=== PATIENT | female | born 1950 | race Caucasian/White ===

== ENCOUNTER 2017-06-02 20:34 | Inpatient (IN) | payer OTHER ==
--- NOTE | 2017-06-02 21:03 | PDOC ---
Attending Attestation - HPI HPI: 06/02/17 21:16 The patient is a 66 year old female, with a significant past medical history of DVTs, chronic lower extremity swelling, hypertension, hyperlipidemia, COPD, asthma, GERD, macular degeneration, and arthritis, who presents to the emergency department sent by PCP, Dr. Vance, for possible admission for bilateral lower extremity edema and cellulitis for the past week. As per patients PCP, patient was placed on Amoxicillin last week for her symptoms with minimal relief. Today, patient reports her symptoms were worsening and Dr. Vance ordered a duplex doppler US of the lower extremities, which was negative for DVT. Patient notes increased swelling, erythema, and pain in her legs. She denies any associated chest pain, shortness of breath, diaphoresis, or palpitations. She denies any fever, chills, headache, or dizziness. She denies any nausea or vomiting. She denies any recent travel or sick contacts. Allergies: Moxifloxacin HCl, procaine HCl Past Surgical History: None reported Social History: Current everyday smoker. No ETOH or recreational drug use. PCP: Dr. Vance - Physicial Exam PE: 06/02/17 21:18 GENERAL: Well-appearing, well-nourished. No apparent distress. Obese HEENT: Normocephalic, atraumatic. PERRL, EOM intact. CARDIOVASCULAR: Normal S1, S2. Regular rate and rhythm. PULMONARY: Clear to auscultation bilaterally. No rales, ronchi ABDOMEN: Soft, non-distended, non-tender. EXTREMITIES: Chronic venous stasis. Bilateral lower extremities warm to touch, tender, and erythematous; 2+ pitting edema. No clubbing. Full range of motion in bilateral upper and lower extremities. SKIN: Warm, dry. Bilateral lower extremity cellulitis and edema. NEUROLOGICAL: No focal neurological deficits. Alert and orientedx3. Normal gait. - Medical Decision Making 06/02/17 21:16 Documentation prepared by Manda Mathias, acting as faculty i on call medical assistant for Cadence Garza MD. <Manda Mathias - Last Filed: 06/02/17 21:16> - Resident Resident Name: Stephan Moura - ED Attending Attestation I have performed the following: I have examined & evaluated the patient, The case was reviewed & discussed with the resident, I agree w/resident's findings & plan, Exceptions are as noted - Medical Decision Making pt has cellulitis and received antibiotics,admitted to med/surg 06/02/17 23:48 <Cadence Garza - Last Filed: 06/02/17 23:48>
--- NOTE | 2017-06-02 21:06 | PDOC ---
History of Present Illness - General Chief Complaint: Wound Stated Complaint: PCP SENT Time Seen by Provider: 06/02/17 20:49 - History of Present Illness Initial Comments: 06/02/17 21:08 The patient is a 66 year old female with a history of HTN, DM, COPD, DVT who presents for evaluation of lower extremity cellulitis from her PCP. She states that she was recently admitted at an OSH and treated for colitis. She was discharged 1 week ago and since that time, she has developed worsening lower extremity swelling and redness with increasing pain. She notes that she saw Dr. Vance her PCP last week who at the time she continue her PO antibiotics. She reports continued worsening symptoms despite PO antibiotics. She had a DVT US performed earlier today which was negative, however, given her continued symptoms, Dr. Vance sent her into the ED for admission for IV antibiotics. She denies fevers, chills, SOB, chest pain, abdominal pain, nausea, vomiting, or changes with urination or bowel movements. Past History - Past Medical History Allergies/Adverse Reactions: Allergies Allergy/AdvReac Type Severity Reaction Status Date / Time moxifloxacin HCl Allergy Verified 06/02/17 20:46 [From Avelox] procaine HCl [From Novocain] Allergy Verified 06/02/17 20:46 Home Medications: Ambulatory Orders Budesonide/Formeterol Fumarate [SYMBICORT 160/4.5mcg -] 1 inh PO DAILY 03/28/14 Diltiazem HCl [Dilacor Xr] 180 mg PO DAILY 03/28/14 Furosemide [Lasix -] 20 mg PO DAILY 03/28/14 Liraglutide [Victoza -] 0 mg SQ ASDIR 03/28/14 Lisinopril [Prinivil] 20 mg PO DAILY 03/28/14 Meloxicam [Mobic -] 15 mg PO DAILY 03/28/14 Metformin HCl [Metformin HCl ER] 500 mg PO DAILY 03/28/14 Metoprolol Succinate [Toprol XL -] 100 mg PO DAILY 03/28/14 Phentermine/Topiramate [Qsymia 15 mg-92 mg Capsule] 1 each PO DAILY 03/28/14 Potassium Chloride [Klor-Con 10] 10 meq PO DAILY 03/28/14 Ranitidine HCl [Zantac] 300 mg PO DAILY 03/28/14 Simvastatin [Zocor -] 40 mg PO HS 03/28/14 Tiotropium [place] [Spiriva] 1 inh PO DAILY 03/28/14 Triamterene/Hydrochlorothiazid [Triamterene-Hctz 37.5-25 mg Cp] 1 each PO DAILY 03/28/14 Asthma: Yes COPD: Yes GI Disorders: Yes (ACID REFLUX) HTN: Yes Hypercholesterolemia: Yes Other medical history: Colitis - Suicide/Smoking/Psychosocial Hx Smoking History: Current every day smoker Have you smoked in the past 12 months: Yes Number of Cigarettes Smoked Daily: 10 Information on smoking cessation initiated: No Hx Alcohol Use: No Drug/Substance Use Hx: No Substance Use Type: None Review of Systems - Review of Systems Comments:: 06/02/17 21:12 Constitutional: No fevers, chills, fatigue, malaise HEENT: No Rhinorrhea, nasal congestion, visual changes Cardiovascular: No chest pain, syncope, palpitations, lightheadedness Respiratory: No Cough, SOB, Hemoptysis, Gastrointestinal: No Abdominal pain, Nausea, Vomiting, Constipation, Diarrhea, Melena Genitourinary: No Dysuria, Frequency, Urgency, Hesitancy, Hematuria, Flank pain Musculoskeletal: No Myalgia, arthralgia Skin: Lower extremity erythema and warmth. No rashes, itching, bruising, pallor Neurologic: No Headache, Dizziness, Numbness, Weakness, or Tingling Psychiatric: No Hallucinations. No SI or HI *Physical Exam - Vital Signs Last Vital Signs Temp Pulse Resp BP Pulse Ox 98.4 F 98 H 20 118/64 96 06/02/17 20:40 06/02/17 20:40 06/02/17 20:40 06/02/17 20:40 06/02/17 20:40 - Physical Exam Comments: 06/02/17 21:12 General Appearance: Nourished. No Apparent Distress HEENT: EOMI, SIRIA. No Pharyngeal Erythema, Tonsillar Exudate, Tonsillar Erythema Neck: No Cervical Lymphadenopathy Respiratory/Chest: Lungs Clear, Normal Breath Sounds. No Crackles, Rales, Rhonchi, Wheezing Cardiovascular: Regular Rhythm, Regular Rate. No Murmur, Gallops, Rubs Gastrointestinal/Abdominal: Normal Bowel Sounds, Soft. No Guarding, Rebound, Tenderness Musculoskeletal: No CVA Tenderness Extremity: 3+ pitting edema bilaterally in the lower extremities with erythema and warmth, tender to palpation. Normal Capillary Refill Integumentary: Normal Color, Dry, Warm Neurologic: Fully Oriented, Alert, Normal Mood/Affect, Normal Response, ED Treatment Course - LABORATORY CBC & Chemistry Diagram: 06/02/17 22:04 06/02/17 22:04 Medical Decision Making - Medical Decision Making 06/02/17 21:13 The patient is a 66 year old female with a history of HTN, DM, COPD, DVT who presents for evaluation of lower extremity cellulitis from her PCP. Given the patient's physical exam, it is likely her symptoms are due to a cellulitis unresponsive to PO antibiotics. We will obtain a cbc, cmp to evaluate further. The patient will likely require admission for IV antibiotics and continued management. We will continue to monitor and reassess. 06/02/17 23:28 cbc, cmp are unremarkable. We discussed the case with the hospitalist team who accepted the patient for admission. The patient has received IV clindamycin here in the ED. *DC/Admit/Observation/Transfer Diagnosis at time of Disposition: Cellulitis Qualifiers: Site of cellulitis: unspecified site Qualified Code(s): L03.90 - Cellulitis, unspecified - Discharge Dispostion Condition at time of disposition: Stable Admit: Yes - Referrals Referrals: Serge Vance MD [Primary Care Provider] - - Patient Instructions - Post Discharge Activity
[2017-06-02] MEDS ORDERED: CLINDAMYCIN 600MG PREMIX IVPB 600 MG/50 ML BAG IVPB ONE ×2 (21:17→22:56)
[2017-06-02 22:25] LABS: BASO % 1.1 % (0-2.0); EOS % 2.9 % (0-4.5); HEMATOCRIT 31.8 % (32.4-45.2); HEMOGLOBIN 10.2 GM/dL (10.7-15.3); LYMPH % 21.2 % (8-40); MCH 26.9 pg (25.7-33.7); MCHC 32.1 g/dl (32.0-36.0); MEAN CELL VOLUME 83.6 fl (80-96); MEAN PLT VOLUME 7.2 fl (7.5-11.1); MONO % 10.9 % (3.8-10.2); NEUT % 63.9 % (42.8-82.8); PLATELET COUNT 510 K/MM3 (134-434); RBC 3.81 M/mm3 (3.60-5.2); RDW 19.6 % (11.6-15.6); WHITE BLOOD COUNT 9.8 K/mm3 (4.0-10.0)
[2017-06-02 22:49] LABS: ALBUMIN 2.4 g/dl (3.4-5.0); ANION GAP 5 (8-16); BLOOD UREA NITROGEN 25 mg/dL (7-18); CALCIUM 7.9 mg/dL (8.5-10.1); CHLORIDE 107 mmol/L (98-107); CO2 31 mmol/L (21-32); CREATININE 1.2 mg/dL (0.55-1.02); GLUCOSE,RANDOM 145 mg/dL (74-106); SGPT/ALT 33 U/L (12-78); SODIUM 143 mmol/L (136-145)
[2017-06-02 22:51] LABS: ALK PHOS 74 U/L (45-117); BILIRUBIN,TOTAL 0.2 mg/dL (0.2-1.0); TOT PROT 5.4 g/dl (6.4-8.2)
[2017-06-02 22:52] LABS: POTASSIUM 4.3 mmol/L (3.5-5.1); SGOT/AST 18 U/L (15-37)
--- NOTE | 2017-06-02 23:26 | PN ---
Teaching Attending Note Name of Resident: Robert Correa ATTENDING PHYSICIAN STATEMENT I saw and evaluated the patient. I reviewed the resident's note and discussed the case with the resident. I agree with the resident's findings and plan as documented. SUBJECTIVE: 66 yo F with Pmhx. of DVTx, Chronic LE edema, HTN, HLD, DM, COPD, Asthma, macular degeneration, and arthritis who was sent in by her PCP for bilateral LE edema and erythema. Duplex LE was negative for DVT. Pt. was placed on Amoxicillin as outpt, after d/c from [facility] for colitis. Notes she feels hot. but denies any fevers or chills. States her erythema on her bilateral LE has been increasing over the course of 1 week. Denies any shortness of breath, chest pain, or pressure. States she has had mild bleeding due to her hemmoriods a week ago. Notes she hit her left ankle several days ago. Recent Colonoscopy last admission to [facility] ( this Month) OBJECTIVE: Physical: VS: Vital Signs Period Temp Pulse Resp BP Sys/[place] Pulse Ox Last 24 Hr 98.4 F 98 20 118/64 96 GEN: NAD, resting in bed, AAoX3 HEENT: NCAT, PERRL, throat without erythema or exudates CARD: RRR S1, S2 RESP: CTAB ABD: BSx4, NTD to palpation EXT: Bilateral warmth and edema (+1 pitting), Erythema bilateral extending to mid calf. Pulses intact. RECTAL: Deferred by pt. CBCD WBC 9.8 K/mm3 (4.0-10.0) 06/02/17 22:04 RBC 3.81 M/mm3 (3.60-5.2) 06/02/17 22:04 Hgb 10.2 GM/dL (10.7-15.3) L D 06/02/17 22:04 Hct 31.8 % (32.4-45.2) L D 06/02/17 22:04 MCV 83.6 fl (80-96) 06/02/17 22:04 MCHC 32.1 g/dl (32.0-36.0) 06/02/17 22:04 RDW 19.6 % (11.6-15.6) H D 06/02/17 22:04 Plt Count 510 K/MM3 (134-434) H D 06/02/17 22:04 MPV 7.2 fl (7.5-11.1) L D 06/02/17 22:04 CMP Sodium 143 mmol/L (136-145) 06/02/17 22:04 Potassium 4.3 mmol/L (3.5-5.1) 06/02/17 22:04 Chloride 107 mmol/L (98-107) 06/02/17 22:04 Carbon Dioxide 31 mmol/L (21-32) 06/02/17 22:04 Anion Gap 5 (8-16) L 06/02/17 22:04 BUN 25 mg/dL (7-18) H 06/02/17 22:04 Creatinine 1.2 mg/dL (0.55-1.02) H 06/02/17 22:04 Creat Clearance w eGFR 45.09 (>60) 06/02/17 22:04 Random Glucose 145 mg/dL (74-106) H 06/02/17 22:04 Calcium 7.9 mg/dL (8.5-10.1) L 06/02/17 22:04 Total Bilirubin 0.2 mg/dL (0.2-1.0) D 06/02/17 22:04 AST 18 U/L (15-37) 06/02/17 22:04 ALT 33 U/L (12-78) 06/02/17 22:04 Alkaline Phosphatase 74 U/L (45-117) 06/02/17 22:04 Total Protein 5.4 g/dl (6.4-8.2) L 06/02/17 22:04 Albumin 2.4 g/dl (3.4-5.0) L 06/02/17 22:04 DUPLEX LE- NEGATIVE ASSESSMENT AND PLAN: 66 yo F with Pmhx. of DVTx, Chronic LE edema, DM, HTN, HLD, COPD, Asthma, macular degeneration, and arthritis who was sent in by her PCP for bilateral LE edema and erythema, being admitted for cellulitis 1.) Cellulitis - Bilateral LE - Vanco/Zosyn - Cx - ID consult 2.) LE Edema - Duplex Negative outpt. - Obtain records 3.) CHIQUITA - U lytes - VERY Gentle IVF - Avoid Nephrotoxins, renally dose all meds 4.) Asthma/COPD - Nebs prn - C/W Home meds 5.) DM - FS - RAISS 6.) HTN - Hold Ac 7.) ? Rectal Bleed due to Hemmoriods - Normocytic Anemia - Currently not bleeding - Recent [place] done at [facility] - Fe studies - Has apt. w GI in one week - Stool Occult 8.) Dvt PPx - Heparin 5000 q8 - If Occult Negative Admit to Obs
[2017-06-03] MEDS ORDERED: ACETAMINOPHEN 325 MG TABLET (FP) PO PRN ×2 (00:50→10:26)
[2017-06-03] MEDS ORDERED: ALBUTEROL SO4 0.083% IH SOL 2.5 MG/3 ML VIAL.NEB. NEB PRN ×2 (00:50→19:02)
--- NOTE | 2017-06-03 00:50 | HP ---
CHIEF COMPLAINT: PCP: Dr. Vance HISTORY OF PRESENT ILLNESS: The patient is a 66 yo f w/ PMH asthma/COPD who was sent to the ED by her PCP for cellulitis. Patient was recently admitted to [facility] for colitis and was discharged on amoxicillin. Since her discharge, the patient has noticed worsening swelling, redness and pain in both lower extremities. She went to see her PCP, who advised her to take her home lasix and amoxicillin. When the swelling and redness continued to worsen after finishing her abx, her PCP advised her to come to the ED for evaluation. Patient denies SOB, chest pain, fevers. Patient does endorse chills. ER course was notable for: (1) clindamycin x1 (2) (3) Recent Travel: none PAST MEDICAL HISTORY: Asthma/COPD GERD HLD colitis DVT in the past PAST SURGICAL HISTORY: Rt ankle fracture repair Social History: Smokin/2 PPD for 30 yrs Alcohol: denies Drugs: denies Family History: non-contributory Allergies moxifloxacin HCl [From Avelox] Allergy (Verified 06/02/17 20:46) procaine HCl [From Novocain] Allergy (Verified 06/02/17 20:46) HOME MEDICATIONS: Home Medications Medication Instructions Recorded Budesonide/Formeterol Fumarate 1 inh PO DAILY 03/28/14 [SYMBICORT 160/4.5mcg -] Diltiazem HCl [Dilacor Xr] 180 mg PO DAILY 03/28/14 Furosemide [Lasix -] 20 mg PO DAILY 03/28/14 Liraglutide [Victoza -] 0 mg SQ ASDIR 03/28/14 Lisinopril [Prinivil] 20 mg PO DAILY 03/28/14 Meloxicam [Mobic -] 15 mg PO DAILY 03/28/14 Metformin HCl [Metformin HCl ER] 500 mg PO DAILY 03/28/14 Metoprolol Succinate [Toprol XL -] 100 mg PO DAILY 03/28/14 Phentermine/Topiramate [Qsymia 15 1 each PO DAILY 03/28/14 mg-92 mg Capsule] Potassium Chloride [Klor-Con 10] 10 meq PO DAILY 03/28/14 Ranitidine HCl [Zantac] 300 mg PO DAILY 03/28/14 Simvastatin [Zocor -] 40 mg PO HS 03/28/14 Tiotropium [place] [Spiriva] 1 inh PO DAILY 03/28/14 Triamterene/Hydrochlorothiazid 1 each PO DAILY 03/28/14 [Triamterene-Hctz 37.5-25 mg Cp] REVIEW OF SYSTEMS CONSTITUTIONAL: Absent: fever, diaphoresis, generalized weakness, malaise, loss of appetite, weight change HEENT: Absent: rhinorrhea, nasal congestion, throat pain, throat swelling, difficulty swallowing, mouth swelling, ear pain, eye pain, visual changes CARDIOVASCULAR: Absent: chest pain, syncope, palpitations, irregular heart rate, lightheadedness , peripheral edema RESPIRATORY: Absent: cough, shortness of breath, dyspnea with exertion, orthopnea, wheezing, stridor, hemoptysis GASTROINTESTINAL: Absent: abdominal pain, abdominal distension, nausea, vomiting, diarrhea, constipation, melena, hematochezia GENITOURINARY: Absent: dysuria, frequency, urgency, hesitancy, hematuria, flank pain, genital pain MUSCULOSKELETAL: Absent: myalgia, arthralgia, joint swelling, back pain, neck pain SKIN: Absent: rash, itching, pallor HEMATOLOGIC/IMMUNOLOGIC: Absent: easy bleeding, easy bruising, lymphadenopathy, frequent infections ENDOCRINE: Absent: unexplained weight gain, unexplained weight loss, heat intolerance, cold intolerance NEUROLOGIC: Absent: headache, focal weakness or paresthesias, dizziness, unsteady gait, seizure, mental status changes, bladder or bowel incontinence PSYCHIATRIC: Absent: anxiety, depression, suicidal or homicidal ideation, hallucinations. PHYSICAL EXAMINATION Vital Signs - 24 hr 06/02/17 20:40 Temperature 98.4 F Pulse Rate 98 H Respiratory 20 Rate Blood Pressure 118/64 O2 Sat by Pulse 96 Oximetry (%) GENERAL: Awake, alert, and fully oriented, in no acute distress. HEAD: Normal with no signs of trauma. EYES: Pupils equal, round and reactive to light, extraocular movements intact, sclera anicteric, conjunctiva clear. No lid lag. NECK: Normal range of motion, supple without lymphadenopathy, JVD, or masses. LUNGS: Breath sounds equal, clear to auscultation bilaterally. no crackles. No accessory muscle use. Mild expiratory wheezes b/l HEART: Regular rate and rhythm, normal S1 and S2 without murmur, rub or gallop. ABDOMEN: Soft, nontender, not distended, normoactive bowel sounds, no guarding, no rebound, no masses. No hepatomegaly or splenomegaly. Rectal exam reveals tender external hemorrhoids. No elvie blood seen. MUSCULOSKELETAL: Normal range of motion at all joints. No bony deformities or tenderness. No CVA tenderness. LOWER EXTREMITIES: 2+ pulses, warm, well-perfused. No peripheral edema. Erythema , swelling and warmth over both lower extremities. Erythematous area is tender to palpation. Laboratory Results - last 24 hr 06/02/17 06/02/17 22:04 22:04 WBC 9.8 RBC 3.81 Hgb 10.2 L D Hct 31.8 L D MCV 83.6 MCH 26.9 D MCHC 32.1 RDW 19.6 H D Plt Count 510 H D MPV 7.2 L D Neutrophils % 63.9 D Lymphocytes % 21.2 D Monocytes % 10.9 H Eosinophils % 2.9 D Basophils % 1.1 Sodium 143 Potassium 4.3 Chloride 107 Carbon Dioxide 31 Anion Gap 5 L BUN 25 H Creatinine 1.2 H Creat Clearance w eGFR 45.09 Random Glucose 145 H Calcium 7.9 L Total Bilirubin 0.2 D AST 18 ALT 33 Alkaline Phosphatase 74 Total Protein 5.4 L Albumin 2.4 L ASSESSMENT/PLAN: Patient is a 66 yo f w/ PMH DM and COPD who is being admitted for treatment of cellulitis. #LE cellulitis -s/p clindamycin in the ED -vancomycin 1.5gm x1 (wt dosed) -zosyn 3.375gm q8h -ID consult #anemia -patient's baseline Hb 13.5 in 2013 -stool for occult blood negative -iron studies -will monitor h/h in AM #CHIQUITA -cr. 1.2; baseline .8 in 2013 -NS @ 42 -urine lytes, fractional excretion of urea -will monitor #COPD -c/w home nebs -albuterol nebs PRN -CXR WNL #DM -BGM ACHS -ISS -A1c in AM #FEN -NS @ 42 -Lytes WNL -diabetic diet #Prophy -HSQ 5ku TID #dispo -admit to med surg for IV ABX Visit type - Emergency Visit Emergency Visit: Yes ED Registration Date: 06/02/17 Care time: The patient presented to the Emergency Department on the above date and was hospitalized for further evaluation of their emergent condition. - New Patient This patient is new to me today: Yes Date on this admission: 06/03/17 - Critical Care Critical Care patient: No
[2017-06-03] MEDS ORDERED: SODIUM CHLORIDE 1,000 ML IV SCH (01:00)
[2017-06-03] MEDS ORDERED: VANCOMYCIN 1,500 MG in DEXTROSE 5%-WATER - 500 ML IVPB ONE (01:08)
[2017-06-03] MEDS ORDERED: VANCOMYCIN 1,500 MG in SODIUM CHLORIDE 500 ML IVPB ONE (01:30)
[2017-06-03] MEDS ORDERED: PIPERACILLIN/TAZOB 3.375 GM 3.375 GM/50 ML BAG IVPB ONE (02:45)
[2017-06-03 04:59] VITALS: BMI 41.9
[2017-06-03] MEDS: HEPARIN NA (PORCINE) 5,000 UNITS/ML 1ML VIAL SQ SCH ×3 (06:06→21:15)
[2017-06-03] MEDS: INSULIN SLIDING SCALE (NOVOLOG) 1 VIAL SQ SCH ×4 (06:08→21:26)
[2017-06-03] MEDS ORDERED: INSULIN SLIDING SCALE (NOVOLOG) 1 VIAL SQ SCH (07:00)
[2017-06-03 07:43] LABS: BASO % 1.1 % (0-2.0); EOS % 3.8 % (0-4.5); HEMATOCRIT 33.3 % (32.4-45.2); HEMOGLOBIN 10.5 GM/dL (10.7-15.3); LYMPH % 27.1 % (8-40); MCH 26.3 pg (25.7-33.7); MCHC 31.6 g/dl (32.0-36.0); MEAN CELL VOLUME 83.5 fl (80-96); MEAN PLT VOLUME 7.1 fl (7.5-11.1); MONO % 8.7 % (3.8-10.2); NEUT % 59.3 % (42.8-82.8); PLATELET COUNT 489 K/MM3 (134-434); RBC 3.99 M/mm3 (3.60-5.2); RDW 19.7 % (11.6-15.6); WHITE BLOOD COUNT 9.2 K/mm3 (4.0-10.0)
[2017-06-03 08:05] LABS: ALBUMIN 2.5 g/dl (3.4-5.0); ALK PHOS 78 U/L (45-117); ANION GAP 8 (8-16); BILIRUBIN,TOTAL 0.4 mg/dL (0.2-1.0); BLOOD UREA NITROGEN 23 mg/dL (7-18); CALCIUM 8.4 mg/dL (8.5-10.1); CHLORIDE 105 mmol/L (98-107); CO2 31 mmol/L (21-32); CREATININE 1.1 mg/dL (0.55-1.02); GLUCOSE,RANDOM 103 mg/dL (74-106); MAGNESIUM 2.1 mg/dL (1.8-2.4); PHOSPHOROUS 3.8 mg/dL (2.5-4.9); POTASSIUM 4.2 mmol/L (3.5-5.1); SGOT/AST 13 U/L (15-37); SGPT/ALT 31 U/L (12-78); SODIUM 144 mmol/L (136-145); TOT PROT 5.6 g/dl (6.4-8.2)
[2017-06-03] MEDS ORDERED: PHENTERMINE PO SCH (10:00)
[2017-06-03] MEDS ORDERED: FUROSEMIDE 20 MG TABLET (FP) PO SCH (10:00)
[2017-06-03] MEDS ORDERED: TOPIRAMATE PO SCH (10:00)
[2017-06-03] MEDS ORDERED: PATIENT'S OWN MEDICATION (NON-FORMULARY) (Meloxicam 15 MG) PO SCH (10:00)
[2017-06-03] MEDS ORDERED: LISINOPRIL 20 MG TABLET (FP) PO SCH (10:00)
[2017-06-03] MEDS ORDERED: BUDESONIDE/FORMETEROL FUMARATE 160/4.5 mcg INHALER IH SCH (10:00)
[2017-06-03] MEDS ORDERED: [UNRECOGNIZED DRUG - OTHER] PO SCH (10:00)
[2017-06-03] MEDS ORDERED: TIOTROPIUM BROMIDE 18 MCG/INH (DEVICE W/ 5 CAPSULES) IH SCH (10:00)
[2017-06-03] MEDS ORDERED: RANITIDINE HCL 150 MG TABLET (FP) PO SCH (10:00)
--- NOTE | 2017-06-03 10:22 | PN ---
Progress Note, Physician Chief Complaint: Cellulitis BLLE History of Present Illness: NAD, sitting at the edge of the bed mild pain cellulitis marking improved, swelling decreased on IV abx to be seen by ID - Current Medication List Current Medications: Active Medications Acetaminophen (Tylenol -) 650 mg PO Q4H PRN PRN Reason: PAIN Albuterol Sulfate (Ventolin 0.083% Nebulizer Soln -) 1 amp NEB Q4H PRN PRN Reason: SHORT OF BREATH/WHEEZING Atorvastatin Calcium (Lipitor -) 20 mg PO HS ELAINE Budesonide/Formoterol Fumarate (Symbicort 160/4.5mcg -) 1 puff IH DAILY ELAINE Diltiazem HCl (Cardizem Cd -) 180 mg PO DAILY ELAINE Furosemide (Lasix -) 20 mg PO DAILY ELANIE Heparin Sodium (Porcine) (Heparin -) 5,000 unit SQ TID [facility] Last Admin: 06/03/17 06:06 Dose: 5,000 unit Sodium Chloride (Normal Saline -) 1,000 mls @ 42 mls/hr IV ASDIR [facility] Last Admin: 06/03/17 05:45 Dose: 42 mls/hr Piperacillin/Tazobactam/Dextrose (Zosyn 3.375gm Ivpb (Premix)) 50 mls @ 100 mls /hr IVPB Q8H-IV ELAINE PRN Reason: Protocol Insulin Aspart (Novolog Vial Sliding Scale -) 1 vial SQ ACHS ELAINE PRN Reason: Protocol Last Admin: 06/03/17 06:08 Dose: Not Given Metoprolol Succinate (Toprol Xl -) 50 mg PO DAILY [facility] Non-Formulary Medication (Meloxicam) 15 mg PO DAILY [facility] Non-Formulary Medication (Phentermine/Topiramate [Qsymia 15 Mg-92 Mg Capsule]) 1 each PO DAILY [facility] Ranitidine HCl (Zantac -) 300 mg PO DAILY [facility] Tiotropium [place] (Spiriva -) 1 puff IH DAILY [facility] Triamterene/HCTZ (Dyazide 25/37.5mg) 1 cap PO DAILY [facility] - Objective Vital Signs: Vital Signs Temperature 98.3 F 06/03/17 04:23 Pulse Rate 92 H 06/03/17 04:23 Respiratory Rate 20 06/03/17 04:23 Blood Pressure 124/69 06/03/17 04:23 O2 Sat by Pulse Oximetry (%) 96 06/02/17 20:40 Constitutional: Yes: Well Nourished, No Distress, Calm Cardiovascular: Yes: Regular Rate and Rhythm Respiratory: Yes: Regular Gastrointestinal: Yes: Normal Bowel Sounds, Soft Musculoskeletal: Yes: WNL Extremities: Yes: Erythema (BLLE) Edema: Yes (BLLE non pitting) Peripheral Pulses WNL: Yes Wound/Incision: Yes: Clean/Dry, Reddened, Unapproximated Neurological: Yes: Alert, Oriented Psychiatric: Yes: Alert, Oriented Labs: CBC, BMP 06/03/17 06:00 06/03/17 06:00 Problem List - Problems (1) Prediabetes Assessment/Plan: -A1c at 6.1 -insulin sliding scale -diabetic diet -RD consult Code(s): R73.03 - PREDIABETES (2) Cellulitis Assessment/Plan: -IV abx -ID consult -elevate BLLE above pelvis when in bed Code(s): L03.90 - CELLULITIS, UNSPECIFIED Qualifiers: Site of cellulitis: unspecified site Qualified Code(s): L03.90 - Cellulitis , unspecified Assessment/Plan see problem list
[2017-06-03] MEDS ORDERED: KETOROLAC TROMETHAMINE 10 MG TABLET PO PRN ×2 (10:25→19:02)
[2017-06-03] MEDS ORDERED: oxyCODONE HCL 5 MG TABLET PO PRN (10:26)
[2017-06-03] MEDS ORDERED: PT OWN MED DRAWER 7, Y5N ONE (10:32)
[2017-06-03] MEDS: TRIAMTERENE AND HCTZ - 37.5 MG/25 MG CAPSULE PO SCH ×2 (10:35→14:45)
[2017-06-03] MEDS ORDERED: LACTOBACILLUS ACIDOPHILUS 1 EACH TAB (FP) PO SCH (10:45)
--- NOTE | 2017-06-03 13:23 | PN ---
Progress Note (short form) - Note Progress Note: ID Conulst dictated Bilateral LE cellulitis pending c/s empiric cefazolin 2gm IVPB q8h elevation, analgesics
--- NOTE | 2017-06-03 14:23 | CONS ---
INFECTIOUS DISEASE CONSULTATION DATE OF CONSULTATION: DATE OF DICTATION: 06/03/2017 REASON FOR CONSULTATION: The patient is a 66-year-old diabetic female who is evaluated for bilateral lower extremity cellulitis. HISTORY OF PRESENT ILLNESS: Patient was recently hospitalized at [facility] for diverticulitis. She reports being hospitalized for 1 week before being discharged on May 25, 2017. Over the past several days, she has had worsening bilateral lower extremity swelling, increasing erythema and warmth. She was treated as an outpatient with amoxicillin without significant improvement. She was evaluated in the emergency room where she was admitted with bilateral lower extremity cellulitis. She was empirically treated with clindamycin. A Doppler exam was performed and was negative for DVT. The patient states that she did sustain some minor trauma to her right lower extremity after striking it against a metal cabinet. She cleaned the wound out herself and reports it did not get infected. She has a history of a right ankle fracture and has hardware. This was done years ago. She denies prior history of serious soft tissue infection requiring hospitalization. No history of MRSA. PAST MEDICAL HISTORY: Positive for diabetes. Positive for hypertension, hyperlipidemia, COPD, bronchial asthma, gastroesophageal reflux, DVT, macular degeneration. PAST SURGICAL HISTORY: Status post right ankle fracture. ALLERGIES: MOXIFLOXACIN and PROCAINE. MEDICATIONS: Triamterene, Zantac, Zocor, Spiriva, Symbicort, diltiazem, Lasix, Victoza, lisinopril, Mobic, metformin, Toprol. SOCIAL HISTORY: She lives at home. She has positive tobacco use history. Negative EtOH or illicit drug use. SYSTEMS REVIEW: Neurologic: No loss of consciousness, seizure activity, focal weakness. Cardiac: Negative chest pain or palpitations. Respiratory: Negative cough or sputum production. Gastrointestinal: Negative vomiting or diarrhea. Genitourinary: Negative for urinary tract infection. LABORATORY DATA: White count 9.2, hematocrit 33.3, platelet count 489. BUN 23, creatinine 1.1. Blood culture is preliminarily negative. PHYSICAL EXAMINATION: General: She is awake and alert. She is in no acute distress, not acutely toxic appearing. Vital Signs: Temperature 98.3; blood pressure 124/69; pulse 94, regular; respirations 20 per minute. HEENT: Sclerae are anicteric. Heart: Sounds S1, S2. Lungs: Clear. Abdomen: Obese, soft, nontender. Lower Extremities: Bilateral lower extremity edema 2+. There is confluent erythema and warmth present in both lower extremities from mid-tibia to the ankle area bilaterally. The skin is warm to touch. No crepitus or fluctuance. No lymphangitic streaking. Healed surgical scar is present, right ankle. IMPRESSION: 1. Bilateral lower extremity cellulitis. 2. Possible sepsis secondary to cellulitis. 3. Status post recent diverticulitis. RECOMMENDATIONS: Await culture results. Empiric antibiotic coverage with cefazolin 2 g IV piggyback every 8 hours. Elevation. Analgesics. Will follow. Thank you for the kind referral. KAYLAH CHAPARRO M.D. [id number]
[2017-06-03] MEDS: CEFAZOLIN 2 GM/D5W 2 GM/50 ML ML IVPB SCH ×2 (14:44→17:27)
--- NOTE | 2017-06-03 16:41 | EKG ---
Test Reason : Blood Pressure : / mmHG Vent. Rate : 090 BPM Atrial Rate : 090 BPM P-R Int : 128 ms QRS Dur : 072 ms QT Int : 370 ms P-R-T Axes : 061 033 046 degrees QTc Int : 452 ms NORMAL SINUS RHYTHM POSSIBLE LEFT ATRIAL ENLARGEMENT BORDERLINE ECG WHEN COMPARED WITH ECG OF 26-SEP-2006 08:51, NONSPECIFIC T WAVE ABNORMALITY NO LONGER EVIDENT IN LATERAL LEADS Confirmed by MD Iam, Javid ([id number]) on 06/03/2017 4:41:25 PM Referred By: Confirmed By:Javid Vitale MD
[2017-06-03] MEDS ORDERED: PIPERACILLIN/TAZOB 3.375 GM 50 ML IVPB SCH (18:00)
--- NOTE | 2017-06-03 18:29 | PN ---
Progress Note (short form) - Note Progress Note: Vascular Surgery Pt seen and examined. Bl lower ext cellulitis. warm to touch. Pt has palpable pulses. ID on case for IV antibiotics. Leg elevation. Will need compression once cellulitis resolves. Pt should follow up in wound care clinic where we can study her veins for reflux. Pt might need laser therapy to decrease swelling, and recurrent bouts of cellulitis. Montrell Alva DO
[2017-06-03] MEDS ORDERED: dilTIAZem HCL 50 MG/10 ML - 10 ML VIAL IVPUSH ONE ×4 (18:33→19:30)
[2017-06-03] MEDS ORDERED: dilTIAZem HCL 125 MG/25 ML - 25 ML VIAL ONE (18:45)
[2017-06-03] MEDS ORDERED: SODIUM CHLORIDE 500 ML IV STA (18:46)
--- NOTE | 2017-06-03 18:51 | RAPID ---
<Triny Josue - Last Filed: 06/03/17 19:04> Physical Examination Vital Signs: Vital Signs Temperature 98.3 F 06/03/17 16:20 Pulse Rate 73 06/03/17 16:20 Respiratory Rate 20 06/03/17 16:20 Blood Pressure 101/52 06/03/17 16:20 O2 Sat by Pulse Oximetry (%) 96 06/02/17 20:40 bp 121/62, 194 bpm, 98% on 15 L nonrebreather Findings/Remarks: patient in acute distress, complaining of new onset mid sternal CP, crushing, constant and palpitations. She has never had this pain before. She denies cardiac history but is on cardizem and metoprolol at home. reports negative stress test a yr ago. Has HTN and COPD. has history of blood streaked stools. Hospitalized for b/l LE cellulitis Constitutional: Yes: Moderate Distress, Obese Eyes: Yes: Conjunctiva Clear, EOM Intact HENT: Yes: Atraumatic, Normocephalic Neck: Yes: Supple Cardiovascular: Yes: Tachycardia, Pulse Irregular, S1, S2. No: JVD Respiratory: Yes: CTA Bilaterally Gastrointestinal: Yes: Normal Bowel Sounds, Abdomen, Obese ...Rectal Exam: Yes: Deferred Extremities: Yes: Other (b/l le erythema edema) Edema: LLE: 2+, RLE: 2+ Peripheral Pulses: Left Radial: 2+, Right Radial: 2+ Neurological: Yes: Alert, Oriented Psychiatric: Yes: Alert, Oriented Rapid Response - Rapid Response Assessment: Stat EKG done shows afib with tvr rate [address] depression in inferolateral leads. given metoprolol 5 no response in hr, then given cardizem 10, HR goes down to 152, repeat ekg shows a fib rvr rate [address] depressions. patient still feels palpitations and cp. patient transferred to telemetry. Dr Camargo channeler insole contacted, recommends strarting her on crdizem gtt rate 7.5 with 10 mg bolus. this is because she is on high dose cardizem 180 at home. Stat cxr, le duplex, cbc, cmp, mag, phos, lactic acid, tsh, cardiac panel ordered. tte ordered <Rosalino Silver - Last Filed: 06/07/17 14:36> Physical Examination Vital Signs: Patient was seen in rapid response. Noted with new onset atrial fibirllation 200s. Metoprolol 5 mg IV x 1, then cardizem 10 mg IV x 1, HR eventually improved to 110-120s. EKG with rate related ST depressions in anterolateral leads. Started on cardizem drip. Cardiology consulted with Dr. Jackson, case discussed. Plan for transfer to telemetry. Also patient with LE edema, and prior h/o DVT. Noted hypoxic 80s and place on NRB. H/o COPD. CT PE ordered. CBC, CMP, troponin I ordered. repeat EKG with improved rate shows improvement in ST depressions. case signed out to overnight covering MD Dr. Sewell and Mahnaz Ashley NP. To follow up labs and CT PE. Total critical care time spent at bedside 40 min. Labs: CBC, BMP 06/04/17 08:15 06/04/17 08:15
[2017-06-03 18:52] LABS: HEMATOCRIT 32.5 % (32.4-45.2); HEMOGLOBIN 10.5 GM/dL (10.7-15.3); MCH 26.8 pg (25.7-33.7); MCHC 32.4 g/dl (32.0-36.0); MEAN CELL VOLUME 82.8 fl (80-96); PLATELET COUNT 487 K/MM3 (134-434); RBC 3.93 M/mm3 (3.60-5.2); RDW 18.8 % (11.6-15.6); WHITE BLOOD COUNT 8.5 K/mm3 (4.0-10.0)
[2017-06-03] MEDS ORDERED: METOPROLOL TARTRATE 5 MG/5 ML VIAL IVPUSH ONE (19:00)
[2017-06-03] MEDS ORDERED: DILTIAZEM INJECTION 125 MG in DEXTROSE 5%-WATER - 100 ML IVPB SCH (19:00)
[2017-06-03] MEDS ORDERED: ADENOSINE 6 MG/2 ML VIAL IVPUSH ONE ×4 (19:00→19:02)
[2017-06-03 19:01] LABS: ARTERIAL BLOOD GAS BASE EXCESS 6.1 meq/l (-2-2); ARTERIAL BLOOD GAS PCO2 42.7 mmHg (35-45); ARTERIAL BLOOD GAS pH 7.46 (7.35-7.45)
[2017-06-03 19:03] LABS: ALLENS TEST POSITIVE
[2017-06-03 19:14] LABS: ALBUMIN 2.5 g/dl (3.4-5.0); ANION GAP 7 (8-16); BLOOD UREA NITROGEN 17 mg/dL (7-18); CALCIUM 7.9 mg/dL (8.5-10.1); CHLORIDE 106 mmol/L (98-107); CO2 29 mmol/L (21-32); GLUCOSE,RANDOM 115 mg/dL (74-106); MAGNESIUM 2.1 mg/dL (1.8-2.4); PHOSPHOROUS 3.8 mg/dL (2.5-4.9); POTASSIUM 3.7 mmol/L (3.5-5.1); SGOT/AST 11 U/L (15-37); SGPT/ALT 29 U/L (12-78); SODIUM 142 mmol/L (136-145)
[2017-06-03 19:18] LABS: ALK PHOS 77 U/L (45-117); BILIRUBIN,TOTAL 0.2 mg/dL (0.2-1.0); TOT PROT 5.4 g/dl (6.4-8.2)
[2017-06-03] MEDS: DILTIAZEM INJECTION 125 MG in DEXTROSE 5%-WATER - 100 ML IVPB SCH (19:30)
[2017-06-03] MEDS: SODIUM CHLORIDE 1,000 ML IV SCH (19:30)
[2017-06-03] MEDS: ATORVASTATIN CA 20 MG TABLET (FP) PO SCH (21:15)
[2017-06-03] MEDS ORDERED: ATORVASTATIN CA 20 MG TABLET (FP) PO SCH (22:00)
[2017-06-04] MEDS ORDERED: DIGOXIN 0.5 MG/2 ML AMPUL IVPUSH ONE ×2 (01:20→07:30)
[2017-06-04] MEDS: CEFAZOLIN 2 GM/D5W 2 GM/50 ML ML IVPB SCH ×3 (01:39→18:34)
[2017-06-04] MEDS ORDERED: METOPROLOL TARTRATE 5 MG/5 ML VIAL ONE (03:54)
--- NOTE | 2017-06-04 03:55 | HOSP ---
Subjective - Review of Symptoms Events since last encounter: Called to see pt for elevated HR. Pt is on cardizem 15mg/hr. s/p rapid response earlier today. Subjective: Pt reports feeling ok. No SOB, No chest pain, reports mild palpitations. Pulmonary: No: Dyspnea, Cough Cardiovascular: Yes: Palpitations. No: Chest Pain Physical Examination Vital Signs: Vital Signs Temperature 98.3 F 06/03/17 22:00 Pulse Rate 148 H 06/04/17 01:29 Respiratory Rate 23 06/03/17 22:00 Blood Pressure 113/57 06/03/17 22:00 O2 Sat by Pulse Oximetry (%) 95 06/03/17 21:00 Constitutional: Yes: No Distress Cardiovascular: Yes: Pulse Irregular, S1, S2 Respiratory: Yes: CTA Bilaterally Gastrointestinal: Yes: Normal Bowel Sounds, Soft. No: Tenderness Edema: No Labs: CBC, BMP 06/03/17 18:47 06/03/17 18:47 Hospitalist Encounter Assessment: new onset atrial fibrillation with RVR - rate improved from before pt placed on cardizem drip but still remains variable; typically 120s-140, extremes up to 150s, down to 90s. Discussed with cardiology earlier and initiated digoxin. Pt received dig 0.25mg @ 130, second dose to be given 0.25mg @[address] Welch. Will continue same treatment course. will not add any further medications at this time. DW pt and primary nurse.
--- NOTE | 2017-06-04 03:55 | HOSP ---
Subjective - Review of Symptoms Subjective: Saw pt. at bedside for A fib W RVR States she feels ok Denies any Shortness of Breath Denies any chest pain or pressure CARD: IRR S1, S2 RESP: CTAB A/P.) A-FiB W RVR - Cardiology called and spoken too, Digoxin 0.25 administered - Lopressor 5 IV X1 - Already on Cardizem gtt - Will be due for Dig. 0.25 6 hrs after 1st dose - Cannot be on A/C due to rectal bleeding as per patient - Cardiology on consult - Echo - Trops/Ekg Physical Examination Vital Signs: Vital Signs Temperature 98.3 F 06/03/17 22:00 Pulse Rate 148 H 06/04/17 01:29 Respiratory Rate 23 06/03/17 22:00 Blood Pressure 113/57 06/03/17 22:00 O2 Sat by Pulse Oximetry (%) 95 06/03/17 21:00 Labs: CBC, BMP 06/03/17 18:47 06/03/17 18:47
[2017-06-04] MEDS: DILTIAZEM INJECTION 125 MG in DEXTROSE 5%-WATER - 100 ML IVPB SCH (03:57)
[2017-06-04] MEDS ORDERED: METOPROLOL TARTRATE 5 MG/5 ML VIAL IVPUSH ONE (04:18)
[2017-06-04 06:06] LABS: SERUM IRON SATURATION 10 % (15-55); TOTAL IRON BINDING CAPACITY 256 ug/dL (250-450); UIBC 231 ug/dL (118-369)
[2017-06-04] MEDS: INSULIN SLIDING SCALE (NOVOLOG) 1 VIAL SQ SCH ×4 (06:09→21:22)
[2017-06-04] MEDS: HEPARIN NA (PORCINE) 5,000 UNITS/ML 1ML VIAL SQ SCH (06:14)
[2017-06-04 08:07] LABS: TRANSFERRIN 213 mg/dL (200-370)
[2017-06-04 08:28] LABS: BASO % 1.3 % (0-2.0); EOS % 3.5 % (0-4.5); HEMATOCRIT 32.7 % (32.4-45.2); HEMOGLOBIN 10.3 GM/dL (10.7-15.3); LYMPH % 19.1 % (8-40); MCH 26.3 pg (25.7-33.7); MCHC 31.4 g/dl (32.0-36.0); MEAN CELL VOLUME 83.7 fl (80-96); MEAN PLT VOLUME 6.6 fl (7.5-11.1); MONO % 9.1 % (3.8-10.2); PLATELET COUNT 437 K/MM3 (134-434); RBC 3.91 M/mm3 (3.60-5.2); RDW 18.9 % (11.6-15.6)
[2017-06-04] MEDS ORDERED: PT OWN MED DRAWER 7, Y5N ONE ×2 (08:54→10:01)
[2017-06-04 09:01] LABS: ANION GAP 5 (8-16); BLOOD UREA NITROGEN 17 mg/dL (7-18); CALCIUM 8.1 mg/dL (8.5-10.1); CHLORIDE 108 mmol/L (98-107); CO2 29 mmol/L (21-32); GLUCOSE,RANDOM 108 mg/dL (74-106); MAGNESIUM 2.1 mg/dL (1.8-2.4); PHOSPHOROUS 3.7 mg/dL (2.5-4.9); POTASSIUM 4.3 mmol/L (3.5-5.1); SODIUM 142 mmol/L (136-145)
[2017-06-04] MEDS: LACTOBACILLUS ACIDOPHILUS 1 EACH TAB (FP) PO SCH (10:13)
[2017-06-04] MEDS: RANITIDINE HCL 150 MG TABLET (FP) PO SCH (10:14)
[2017-06-04] MEDS: FUROSEMIDE 20 MG TABLET (FP) PO SCH (10:14)
[2017-06-04] MEDS: TRIAMTERENE AND HCTZ - 37.5 MG/25 MG CAPSULE PO SCH (10:15)
--- NOTE | 2017-06-04 11:01 | EKG ---
Test Reason : Blood Pressure : / mmHG Vent. Rate : 133 BPM Atrial Rate : 156 BPM P-R Int : 000 ms QRS Dur : 084 ms QT Int : 328 ms P-R-T Axes : 000 035 038 degrees QTc Int : 488 ms ATRIAL FIBRILLATION WITH RAPID VENTRICULAR RESPONSE WITH PREMATURE VENTRICULAR OR ABERRANTLY CONDUCTED COMPLEXES ABNORMAL ECG WHEN COMPARED WITH ECG OF 02-JUN-2017 23:22, ATRIAL FIBRILLATION HAS REPLACED SINUS RHYTHM Confirmed by GLORIA ODONNELL, KIRIT ([id number]) on 06/04/2017 11:00:45 AM Referred By: Juanjo CHAMBERS Confirmed By:KIRIT CASTRO MD
[2017-06-04] MEDS: TIOTROPIUM BROMIDE 18 MCG/INH (DEVICE W/ 5 CAPSULES) IH SCH (11:36)
[2017-06-04] MEDS: BUDESONIDE/FORMETEROL FUMARATE 160/4.5 mcg INHALER IH SCH (11:37)
--- NOTE | 2017-06-04 13:32 | PN ---
Progress Note (short form) - Note Progress Note: CCM/CODE 99 NOTE Pt is 66yo female with h/o HTN, asthma/COPD, hyperlipidemia, h/o DVTs who was admitted with cellulitis. Hospital course significant for atrial fibrillation with RVR. Called to see pt as she had a witnessed syncope and fall forward with head trauma. Pt unresponsive and pulseless. Chest compressions immediately started while patient on floor. Telemetry monitoring showing ventricular fibrillation, pt defibrillated with 200J biphasic and given 1 amp epinephrine with ROSC. [place] slice suctioned out of mouth. Pt now awake, alert. Will order CT head, rib, hip/pelvis x-rays to r/o trauma. Barron Robbins MD critical care time spent 35 min
--- NOTE | 2017-06-04 14:08 | EKG ---
Test Reason : Blood Pressure : / mmHG Vent. Rate : 082 BPM Atrial Rate : 082 BPM P-R Int : 136 ms QRS Dur : 084 ms QT Int : 378 ms P-R-T Axes : 052 042 064 degrees QTc Int : 441 ms NORMAL SINUS RHYTHM POSSIBLE LEFT ATRIAL ENLARGEMENT BORDERLINE ECG WHEN COMPARED WITH ECG OF 04-JUN-2017 10:04, SINUS RHYTHM HAS REPLACED ATRIAL FIBRILLATION VENT. RATE HAS DECREASED BY 51 BPM Confirmed by KIRIT CASTRO MD ([id number]) on 06/04/2017 2:08:09 PM Referred By: Juanjo CHAMBERS Confirmed By:KIRIT CASTRO MD
--- NOTE | 2017-06-04 14:24 | PN ---
Progress Note, Physician Chief Complaint: CHART AND NOTES REVIEWED S/P CARDIAC CODE NEEDING CHEST COMPRESSIONS AND DEFIBRILLATOR SHOCK FOR VFIB PATIENT AWAKE RETURNING FROM CT SCAN, MILD DISTRESS A AND O X 3 - Current Medication List Current Medications: Active Medications Acetaminophen (Tylenol -) 650 mg PO Q4H PRN PRN Reason: PAIN LEVEL 1 - 3 Albuterol Sulfate (Ventolin 0.083% Nebulizer Soln -) 1 amp NEB Q4H PRN PRN Reason: SHORT OF BREATH/WHEEZING Atorvastatin Calcium (Lipitor -) 20 mg PO HS [facility] Last Admin: 06/03/17 21:15 Dose: 20 mg Budesonide/Formoterol Fumarate (Symbicort 160/4.5mcg -) 1 puff IH DAILY [facility] Last Admin: 06/04/17 11:37 Dose: 1 puff Diltiazem HCl (Cardizem Cd -) 180 mg PO DAILY [facility] Last Admin: 06/04/17 10:14 Dose: 180 mg Furosemide (Lasix -) 20 mg PO DAILY [facility] Last Admin: 06/04/17 10:14 Dose: 20 mg Heparin Sodium (Porcine) (Heparin -) 5,000 unit SQ TID [facility] Last Admin: 06/04/17 06:14 Dose: 5,000 unit Cefazolin Sodium/Dextrose (Ancef 2 Gm Premixed Ivpb -) 2 gm in 50 mls @ 100 mls /hr IVPB Q8H-IV [facility] Last Admin: 06/04/17 09:49 Dose: 100 mls/hr Sodium Chloride (Normal Saline -) 1,000 mls @ 42 mls/hr IV ASDIR [facility] Last Admin: 06/03/17 19:30 Dose: 42 mls/hr Diltiazem HCl 125 mg/ Dextrose 125 mls @ 7.5 mls/hr IVPB TITR [facility]; 7.5 MG/HR PRN Reason: Protocol Last Admin: 06/04/17 03:57 Dose: 15 mg/hr, 15 mls/hr Insulin Aspart (Novolog Vial Sliding Scale -) 1 vial SQ ACHS [facility] PRN Reason: Protocol Last Admin: 06/04/17 11:47 Dose: Not Given Ketorolac Tromethamine (Toradol) 10 mg PO TID PRN PRN Reason: PAIN LEVEL 4 - 6 Stop: 06/08/17 13:59 Last Admin: 06/04/17 10:15 Dose: 10 mg Lactobacillus Acidophilus (Bacid -) 1 tab PO DAILY [facility] Last Admin: 06/04/17 10:13 Dose: 1 tab Metoprolol Succinate (Toprol Xl -) 50 mg PO DAILY [facility] Last Admin: 06/04/17 10:14 Dose: 50 mg Oxycodone HCl (Roxicodone -) 5 mg PO Q6H PRN PRN Reason: PAIN LEVEL 7 - 10 Ranitidine HCl (Zantac -) 300 mg PO DAILY [facility] Last Admin: 06/04/17 10:14 Dose: 300 mg Tiotropium [place] (Spiriva -) 1 puff IH DAILY [facility] Last Admin: 06/04/17 11:36 Dose: 1 puff Triamterene/HCTZ (Dyazide 25/37.5mg) 1 cap PO DAILY [facility] Last Admin: 06/04/17 10:15 Dose: 1 cap - Objective Vital Signs: Vital Signs Temperature 98 F 06/04/17 09:03 Pulse Rate 114 H 06/04/17 09:03 Respiratory Rate 22 06/04/17 09:03 Blood Pressure 116/60 06/04/17 07:56 O2 Sat by Pulse Oximetry (%) 96 06/04/17 09:00 Constitutional: Yes: Mild Distress Eyes: Yes: WNL HENT: Yes: WNL Neck: Yes: WNL Cardiovascular: Yes: Tachycardia Respiratory: Yes: On Nasal O2, SOB Gastrointestinal: Yes: WNL Genitourinary: Yes: Incontinence Musculoskeletal: Yes: Muscle Weakness Extremities: Yes: Other Edema: Yes Edema: LLE: 2+, RLE: 2+ Peripheral Pulses WNL: Yes Integumentary: Yes: Venous Stasis Changes Wound/Incision: Yes: Clean/Dry Neurological: Yes: WNL ...Motor Strength: WNL Psychiatric: Yes: WNL Labs: CBC, BMP 06/04/17 08:15 06/04/17 08:15 Problem List - Problems (1) Ventricular fibrillation seen on groundwater monitoring technician Code(s): I49.01 - VENTRICULAR FIBRILLATION (2) Aspiration into airway Code(s): T17.908A - UNSP FB IN RESP TRACT, PART UNSP CAUSING OTH INJURY, INIT Qualifiers: Encounter type: initial encounter Qualified Code(s): T17.908A - Unspecified foreign body in respiratory tract, part unspecified causing other injury, initial encounter (3) Respiratory distress Code(s): R06.03 - ACUTE RESPIRATORY DISTRESS (4) Cellulitis Code(s): L03.90 - CELLULITIS, UNSPECIFIED Qualifiers: Site of cellulitis: unspecified site Qualified Code(s): L03.90 - Cellulitis , unspecified Assessment/Plan PATIENT POSSIBLY ASPIRATED ON FOOD WHICH SET THE SEQUELA OF VFIB NOW AWAKE AND ALERT 0N [address] SCAN SHOWS ATELECTASIS, PLEURAL EFFUSSIONS CARDIO/PULM FOLLOW UP HEPARIN IV PER CARDIOLOGY WILL NEED ISCHEMIA WORKUP MONITOR FOR VFIB/VTACH
[2017-06-04] MEDS: oxyCODONE HCL 5 MG TABLET PO PRN ×2 (16:37→22:51)
--- NOTE | 2017-06-04 17:00 | CON.CARD ---
Consult Consult Specialty:: Cardiology Referred by:: Serge Zhang Reason for Consultation:: Afib/vfib - History of Present Illness Chief Complaint: LE cellulitis History of Present Illness: 66 year old f with a pmhx of asthma/copd, htn, and hld recently admitted to [facility] for colitis and since has been having worsening LE edema and cellulitis so pmd sent her in to ER. Cellulitis improving on Abx and lasix PO. Developed afib with RVR last night which patient denies any history h/o afib or arrhythmia despite being on metoprolol and diltiazem on med list. Today, while eating and talking to the social service director the patient syncopyzed. Resulting in head trauma. Rapid Response called and patient noted to be in Afib and s/p successful cardioversion. She is AOx3 now and only c/o chest tenderness to sternum to touch likely related to compressions. No palpitations. Echocardiogram: Normal LVEF with no significant valve disease. - History Source History Provided By: Patient, Medical Record - Past Medical History FRONT OFFICE COORDINATOR: Yes: Other (MACULAR DEGENERATION) Cardio/Vascular: Yes: HTN Pulmonary: Yes: Asthma, COPD Infectious Disease: Yes: Other (UTI) Psych: Yes: Other (NACROLEPSY) Rheumatology: Yes: Other (ARTHRITIS) Additional Medical History: HEMORRHOIDS(HX HEMORRHOIDECTOMY) - Past Surgical History Past Surgical History: Yes: Colonoscopy, Tonsillectomy (ANKLE SURGERY) - Alcohol/Substance Use Hx Alcohol Use: No - Smoking History Smoking history: Current every day smoker Have you smoked in the past 12 months: Yes Aproximately how many cigarettes per day: 10 - Social History History of Recent Travel: No Home Medications - Allergies Allergies/Adverse Reactions: Allergies Allergy/AdvReac Type Severity Reaction Status Date / Time moxifloxacin HCl Allergy Verified 06/02/17 20:46 [From Avelox] procaine HCl [From Novocain] Allergy Verified 06/02/17 20:46 - Home Medications Home Medications: Ambulatory Orders Budesonide/Formeterol Fumarate [SYMBICORT 160/4.5mcg -] 1 inh PO DAILY 03/28/14 Diltiazem HCl [Dilacor Xr] 180 mg PO DAILY 03/28/14 Furosemide [Lasix -] 20 mg PO DAILY 03/28/14 Liraglutide [Victoza -] 0 mg SQ ASDIR 03/28/14 Lisinopril [Prinivil] 20 mg PO DAILY 03/28/14 Meloxicam [Mobic -] 15 mg PO DAILY 03/28/14 Metformin HCl [Metformin HCl ER] 500 mg PO DAILY 03/28/14 Metoprolol Succinate [Toprol XL -] 100 mg PO DAILY 03/28/14 Phentermine/Topiramate [Qsymia 15 mg-92 mg Capsule] 1 each PO DAILY 03/28/14 Potassium Chloride [Klor-Con 10] 10 meq PO DAILY 03/28/14 Ranitidine HCl [Zantac] 300 mg PO DAILY 03/28/14 Simvastatin [Zocor -] 40 mg PO HS 03/28/14 Tiotropium [place] [Spiriva] 1 inh PO DAILY 03/28/14 Triamterene/Hydrochlorothiazid [Triamterene-Hctz 37.5-25 mg Cp] 1 each PO DAILY 03/28/14 Family Disease History - Family Disease History Family Disease History: Heart Disease: Mother (CHF), Brother (COLON), CA: Brother, Other: Grandparent (CVA (HEMORRHAGIC)) Vital Signs: Vital Signs Temperature 98 F 06/04/17 09:03 Pulse Rate 96 H 06/04/17 14:04 Respiratory Rate 22 06/04/17 14:04 Blood Pressure 104/60 06/04/17 14:04 O2 Sat by Pulse Oximetry (%) 96 06/04/17 09:00 Constitutional: Yes: No Distress Neck: Yes: Supple Respiratory: Yes: CTA Bilaterally Gastrointestinal: Yes: Soft Cardiovascular: Yes: Regular Rate and Rhythm JVD: No Carotid Bruit: No Heart Sounds: Yes: S1, S2 Murmur: No: Systolic Murmur Extremities: Yes: Other (b/l LE cellulitis) Edema: LLE: Trace, RLE: Trace - Other Data Labs, Other Data: CBC, BMP 06/04/17 08:15 06/04/17 08:15 Troponin, BNP 06/03/17 06/04/17 18:47 08:15 Troponin I < 0.02 0.03 Troponin, BNP 06/03/17 06/04/17 18:47 08:15 Troponin I < 0.02 0.03 Imaging - Results Chest X-ray: Report Reviewed Cat Scan: Report Reviewed EKG: Image Reviewed Assessment/Plan 66 year old f with a pmhx of asthma/copd, htn, and hld recently admitted to [facility] for colitis and since has been having worsening LE edema and cellulitis so pmd sent her in to ER. Cellulitis improving on Abx and lasix PO. Developed afib with RVR last night which patient denies any history h/o afib or arrhythmia despite being on metoprolol and diltiazem on med list. Today, while eating and talking to the social service director the patient syncopyzed. Resulting in head trauma. Rapid Response called and patient noted to be in Afib and s/p successful cardioversion. She is AOx3 now and only c/o chest tenderness to sternum to touch likely related to compressions. No palpitations. Echocardiogram: Normal LVEF with no significant valve disease. 1) Afib/Vfib patient currently in sinus rhythm. Was very difficult to control HR on IV diltiazem drip, metoprolol, and digoxin was given. Unclear if Vfib was preceded by hypoxia/choking on orange (as orange was suctioned out of her mouth) but patient does not remember any choking sensation prior to event. Would start amiodarone 400mg PO TID Echocardiogram with normal LVEF and no significant valve disease Continue metoprolol and will uptitrate as HR/BP allows Will need an ischemic work up. Keep NPO in the morning and will discuss cath vs. stress testing Trend serial cardiac enzymes -If no contraindications and CT head unremarkable than plan for anticoagulation with heparin IV goal PTT 60-70. Continue telemetry monitoring Monitor lytes closely. And keep K greater than 4 and Mg greater than 2 Avoid hypoxia.
[2017-06-04] MEDS ORDERED: HEPARIN NA (PORCINE) 5,000 UNITS/ML 1ML VIAL IVPUSH PRN ×2 (17:27)
[2017-06-04] MEDS ORDERED: HEPARIN SOD,PORK IN 0.45% NACL 25,000 UNITS/500 ML INFUS.BAG IVPB SCH (17:30)
[2017-06-04] MEDS: AMIODARONE HCL 200 MG TABLET (FP) PO SCH ×2 (18:45→21:23)
[2017-06-04] MEDS: SODIUM CHLORIDE 1,000 ML IV SCH (19:06)
[2017-06-04] MEDS: ACETAMINOPHEN 325 MG TABLET (FP) PO PRN (20:39)
[2017-06-04] MEDS: ATORVASTATIN CA 20 MG TABLET (FP) PO SCH (21:23)
[2017-06-05] MEDS: CEFAZOLIN 2 GM/D5W 2 GM/50 ML ML IVPB SCH ×2 (01:09→09:06)
[2017-06-05] MEDS: ACETAMINOPHEN 325 MG TABLET (FP) PO PRN ×2 (01:09→09:05)
[2017-06-05] MEDS: oxyCODONE HCL 5 MG TABLET PO PRN ×2 (05:21→11:54)
[2017-06-05] MEDS: AMIODARONE HCL 200 MG TABLET (FP) PO SCH (06:08)
[2017-06-05] MEDS: INSULIN SLIDING SCALE (NOVOLOG) 1 VIAL SQ SCH ×2 (06:11→13:11)
--- NOTE | 2017-06-05 09:00 | PN ---
Progress Note, Physician History of Present Illness: Awake, alert Events noted C/O chest, R shoulder and L face discomfort No c/o leg pain Afebrile WBC WNL BC (-) - Current Medication List Current Medications: Active Medications Acetaminophen (Tylenol -) 650 mg PO Q4H PRN PRN Reason: PAIN LEVEL 1 - 3 Last Admin: 06/05/17 01:09 Dose: 650 mg Albuterol Sulfate (Ventolin 0.083% Nebulizer Soln -) 1 amp NEB Q4H PRN PRN Reason: SHORT OF BREATH/WHEEZING Amiodarone HCl (Cordarone -) 400 mg PO TID [facility] Last Admin: 06/05/17 06:08 Dose: 400 mg Atorvastatin Calcium (Lipitor -) 20 mg PO HS [facility] Last Admin: 06/04/17 21:23 Dose: 20 mg Budesonide/Formoterol Fumarate (Symbicort 160/4.5mcg -) 1 puff IH DAILY [facility] Last Admin: 06/04/17 11:37 Dose: 1 puff Furosemide (Lasix -) 20 mg PO DAILY [facility] Last Admin: 06/04/17 10:14 Dose: 20 mg Heparin Sodium (Porcine) (Heparin -) 1,000 unit IVPUSH PRN PRN PRN Reason: Heparin Heparin Sodium (Porcine) (Heparin -) 5,000 unit IVPUSH PRN PRN PRN Reason: Heparin Cefazolin Sodium/Dextrose (Ancef 2 Gm Premixed Ivpb -) 2 gm in 50 mls @ 100 mls /hr IVPB Q8H-IV [facility] Last Admin: 06/05/17 01:09 Dose: 100 mls/hr Sodium Chloride (Normal Saline -) 1,000 mls @ 42 mls/hr IV ASDIR [facility] Last Admin: 06/04/17 19:06 Dose: 42 mls/hr HEPARIN SOD,PORK IN 0.45% NACL (Heparin-1/2ns 25,000 Units/500) 25,000 units in 500 mls @ 20 mls/hr IVPB TITR [facility]; 1,000 UNITS/HR PRN Reason: Protocol Last Admin: 06/04/17 22:52 Dose: 1,000 units/hr, 20 mls/hr Insulin Aspart (Novolog Vial Sliding Scale -) 1 vial SQ ACHS [facility] PRN Reason: Protocol Last Admin: 06/05/17 06:11 Dose: Not Given Lactobacillus Acidophilus (Bacid -) 1 tab PO DAILY [facility] Last Admin: 06/04/17 10:13 Dose: 1 tab Metoprolol Succinate (Toprol Xl -) 50 mg PO DAILY [facility] Last Admin: 06/04/17 10:14 Dose: 50 mg Oxycodone HCl (Roxicodone -) 5 mg PO Q6H PRN PRN Reason: PAIN LEVEL 7 - 10 Last Admin: 06/05/17 05:21 Dose: 5 mg Ranitidine HCl (Zantac -) 300 mg PO DAILY [facility] Last Admin: 06/04/17 10:14 Dose: 300 mg Tiotropium [place] (Spiriva -) 1 puff IH DAILY [facility] Last Admin: 06/04/17 11:36 Dose: 1 puff Triamterene/HCTZ (Dyazide 25/37.5mg) 1 cap PO DAILY [facility] Last Admin: 06/04/17 10:15 Dose: 1 cap - Objective Vital Signs: Vital Signs Temperature 97.2 F L 06/05/17 02:00 Pulse Rate 74 06/05/17 02:00 Respiratory Rate 18 06/05/17 02:00 Blood Pressure 132/76 06/05/17 02:00 O2 Sat by Pulse Oximetry (%) 97 06/04/17 21:00 Constitutional: Yes: No Distress Eyes: Yes: Conjunctiva Clear Cardiovascular: Yes: Regular Rate and Rhythm, S1, S2 Respiratory: Yes: CTA Bilaterally Gastrointestinal: Yes: Normal Bowel Sounds. No: Tenderness Extremities: Yes: Other (erythema/ warmth LE almost completely resolved) Labs: CBC, BMP 06/04/17 08:15 06/04/17 08:15 Assessment/Plan Bilateral LE cellulitis improved Rapid Afib s/p cardioversion Substitute po keflex x 48-72hr
[2017-06-05] MEDS: LACTOBACILLUS ACIDOPHILUS 1 EACH TAB (FP) PO SCH (09:06)
[2017-06-05] MEDS: FUROSEMIDE 20 MG TABLET (FP) PO SCH (09:06)
[2017-06-05 09:40] VITALS: BP 152/69; TEMP 98.6
--- NOTE | 2017-06-05 10:53 | PN ---
Progress Note, Physician Chief Complaint: AWAKE, STILL HAVING CHEST PAIN TO TOUCH NO SOB - Current Medication List Current Medications: Active Medications Acetaminophen (Tylenol -) 650 mg PO Q4H PRN PRN Reason: PAIN LEVEL 1 - 3 Last Admin: 06/05/17 09:05 Dose: 650 mg Albuterol Sulfate (Ventolin 0.083% Nebulizer Soln -) 1 amp NEB Q4H PRN PRN Reason: SHORT OF BREATH/WHEEZING Amiodarone HCl (Cordarone -) 400 mg PO TID [facility] Last Admin: 06/05/17 06:08 Dose: 400 mg Atorvastatin Calcium (Lipitor -) 20 mg PO HS [facility] Last Admin: 06/04/17 21:23 Dose: 20 mg Budesonide/Formoterol Fumarate (Symbicort 160/4.5mcg -) 1 puff IH DAILY [facility] Last Admin: 06/04/17 11:37 Dose: 1 puff Cephalexin HCl (Keflex -) 500 mg PO Q6HPO [facility] Furosemide (Lasix -) 20 mg PO DAILY [facility] Last Admin: 06/05/17 09:06 Dose: 20 mg Heparin Sodium (Porcine) (Heparin -) 1,000 unit IVPUSH PRN PRN PRN Reason: Heparin Heparin Sodium (Porcine) (Heparin -) 5,000 unit IVPUSH PRN PRN PRN Reason: Heparin Sodium Chloride (Normal Saline -) 1,000 mls @ 42 mls/hr IV ASDIR [facility] Last Admin: 06/04/17 19:06 Dose: 42 mls/hr HEPARIN SOD,PORK IN 0.45% NACL (Heparin-1/2ns 25,000 Units/500) 25,000 units in 500 mls @ 20 mls/hr IVPB TITR [facility]; 1,000 UNITS/HR PRN Reason: Protocol Last Titration: 06/05/17 08:57 Dose: 1,150 units/hr, 23 mls/hr Insulin Aspart (Novolog Vial Sliding Scale -) 1 vial SQ ACHS [facility] PRN Reason: Protocol Last Admin: 06/05/17 06:11 Dose: Not Given Lactobacillus Acidophilus (Bacid -) 1 tab PO DAILY [facility] Last Admin: 06/05/17 09:06 Dose: 1 tab Metoprolol Succinate (Toprol Xl -) 50 mg PO DAILY [facility] Last Admin: 06/05/17 09:06 Dose: 50 mg Oxycodone HCl (Roxicodone -) 5 mg PO Q6H PRN PRN Reason: PAIN LEVEL 7 - 10 Last Admin: 06/05/17 05:21 Dose: 5 mg Ranitidine HCl (Zantac -) 300 mg PO DAILY [facility] Last Admin: 06/04/17 10:14 Dose: 300 mg Tiotropium [place] (Spiriva -) 1 puff IH DAILY [facility] Last Admin: 06/04/17 11:36 Dose: 1 puff Triamterene/HCTZ (Dyazide 25/37.5mg) 1 cap PO DAILY [facility] Last Admin: 06/04/17 10:15 Dose: 1 cap - Objective Vital Signs: Vital Signs Temperature 98.6 F 06/05/17 08:00 Pulse Rate 82 06/05/17 08:00 Respiratory Rate 18 06/05/17 09:00 Blood Pressure 152/69 06/05/17 08:00 O2 Sat by Pulse Oximetry (%) 97 06/05/17 09:00 Constitutional: Yes: Mild Distress Eyes: Yes: WNL HENT: Yes: WNL Neck: Yes: WNL Cardiovascular: Yes: WNL Respiratory: Yes: WNL, On Nasal O2 Gastrointestinal: Yes: WNL Genitourinary: Yes: WNL Musculoskeletal: Yes: Muscle Weakness Extremities: Yes: WNL Edema: Yes Peripheral Pulses WNL: Yes Integumentary: Yes: WNL Wound/Incision: Yes: Clean/Dry Neurological: Yes: WNL ...Motor Strength: WNL Psychiatric: Yes: WNL Labs: CBC, BMP 06/04/17 08:15 06/04/17 08:15 Problem List - Problems (1) Ventricular fibrillation seen on color television console monitor Code(s): I49.01 - VENTRICULAR FIBRILLATION (2) Aspiration into airway Code(s): T17.908A - UNSP FB IN RESP TRACT, PART UNSP CAUSING OTH INJURY, INIT Qualifiers: Encounter type: initial encounter Qualified Code(s): T17.908A - Unspecified foreign body in respiratory tract, part unspecified causing other injury, initial encounter (3) Respiratory distress Code(s): R06.03 - ACUTE RESPIRATORY DISTRESS (4) Cellulitis Code(s): L03.90 - CELLULITIS, UNSPECIFIED Qualifiers: Site of cellulitis: unspecified site Qualified Code(s): L03.90 - Cellulitis , unspecified Assessment/Plan PATIENT AGREES TO CARDIAC CATH AFTER REFUSING INITIALLY I WILL D/W CARDIOLOGY WILL TRANSFER TO [facility] FOR CARDIAC CATH D/W DR BORGES
--- NOTE | 2017-06-05 10:58 | DS ---
Physical Examination Vital Signs: Vital Signs Temperature 98.6 F 06/05/17 08:00 Pulse Rate 82 06/05/17 08:00 Respiratory Rate 18 06/05/17 09:00 Blood Pressure 152/69 06/05/17 08:00 O2 Sat by Pulse Oximetry (%) 97 06/05/17 09:00 Findings/Remarks: SEE PROGRESS NOTE TODAY Labs: CBC, BMP 06/04/17 08:15 06/04/17 08:15 Discharge Summary Reason For Visit: CELLULITIS Current Active Problems Aspiration into airway (Acute) Cellulitis (Acute) Prediabetes (Acute) Respiratory distress (Acute) Ventricular fibrillation seen on desk monitor (Acute) Procedures: Principal: CT SCAN Hospital Course: WILL NEED CARDIAC CATH, D/W CARDIOLOGY AND PATIENT Condition: Stable - Instructions Referrals: Serge Vance MD [Primary Care Provider] - Disposition: TRANSFER ACUTE CARE/OTHER HOSP - Home Medications Comprehensive Discharge Medication List: Ambulatory Orders Budesonide/Formeterol Fumarate [SYMBICORT 160/4.5mcg -] 1 inh PO DAILY 03/28/14 Diltiazem HCl [Dilacor Xr] 180 mg PO DAILY 03/28/14 Furosemide [Lasix -] 20 mg PO DAILY 03/28/14 Liraglutide [Victoza -] 0 mg SQ ASDIR 03/28/14 Lisinopril [Prinivil] 20 mg PO DAILY 03/28/14 Meloxicam [Mobic -] 15 mg PO DAILY 03/28/14 Metformin HCl [Metformin HCl ER] 500 mg PO DAILY 03/28/14 Metoprolol Succinate [Toprol XL -] 100 mg PO DAILY 03/28/14 Potassium Chloride [Klor-Con 10] 10 meq PO DAILY 03/28/14 Ranitidine HCl [Zantac] 300 mg PO DAILY 03/28/14 Simvastatin [Zocor -] 40 mg PO HS 03/28/14 Tiotropium [place] [Spiriva] 1 inh PO DAILY 03/28/14 Triamterene/Hydrochlorothiazid [Triamterene-Hctz 37.5-25 mg Cp] 1 each PO DAILY 03/28/14 Acetaminophen [Tylenol .Regular Strength -] 650 mg PO Q4H PRN tablet 06/05/17 Albuterol 0.083% Nebulizer Clarita [Ventolin 0.083% Nebulizer Soln -] 1 amp NEB Q4H PRN amp 06/05/17 Amiodarone HCl [Cordarone -] 400 mg PO TID tablet 06/05/17 Cephalexin Monohydrate [Keflex -] 500 mg PO Q6HPO capsule 06/05/17 Insulin Sliding Scale [Novolog Vial Sliding Scale -] 1 vial SQ ACHS units 06/05 Lactobacillus Acidophilus [Bacid -] 1 tab PO DAILY tab 06/05/17 oxyCODONE HCL [Roxicodone -] 5 mg PO Q6H PRN tablet MDD 4 06/05/17
[2017-06-05] MEDS ORDERED: CEPHALEXIN MONOHYDRATE 500 MG CAPSULE (UD) PO SCH (12:00)
[2017-06-05] MEDS ORDERED: PT OWN MED DRAWER 7, Y5N ONE (12:30)
[2017-06-05 12:57] VITALS: PULSE 84
[2017-06-05] MEDS: TIOTROPIUM BROMIDE 18 MCG/INH (DEVICE W/ 5 CAPSULES) IH SCH (13:09)
[2017-06-05] MEDS: TRIAMTERENE AND HCTZ - 37.5 MG/25 MG CAPSULE PO SCH (13:10)
[2017-06-05] MEDS: BUDESONIDE/FORMETEROL FUMARATE 160/4.5 mcg INHALER IH SCH (13:10)
[2017-06-05] MEDS: RANITIDINE HCL 150 MG TABLET (FP) PO SCH (13:11)
--- NOTE | 2017-06-05 13:17 | PN ---
Progress Note, Physician Chief Complaint: No complaints today except for chest tenderness to touch History of Present Illness: 66 year old f with a pmhx of asthma/copd, htn, and hld recently admitted to Health system for colitis and since has been having worsening LE edema and cellulitis so pmd sent her in to ER. Cellulitis improving on Abx and lasix PO. Developed afib with RVR last night which patient denies any history h/o afib or arrhythmia despite being on metoprolol and diltiazem on med list. Today, while eating and talking to the bilingual social worker the patient syncopyzed. Resulting in head trauma. Rapid Response called and patient noted to be in Afib and s/p successful cardioversion. She is AOx3 now and only c/o chest tenderness to sternum to touch likely related to compressions. No palpitations. Echocardiogram: Normal LVEF with no significant valve disease. - Current Medication List Current Medications: Active Medications Acetaminophen (Tylenol -) 650 mg PO Q4H PRN PRN Reason: PAIN LEVEL 1 - 3 Last Admin: 06/05/17 09:05 Dose: 650 mg Albuterol Sulfate (Ventolin 0.083% Nebulizer Soln -) 1 amp NEB Q4H PRN PRN Reason: SHORT OF BREATH/WHEEZING Amiodarone HCl (Cordarone -) 400 mg PO TID [facility] Last Admin: 06/05/17 06:08 Dose: 400 mg Atorvastatin Calcium (Lipitor -) 20 mg PO HS [facility] Last Admin: 06/04/17 21:23 Dose: 20 mg Budesonide/Formoterol Fumarate (Symbicort 160/4.5mcg -) 1 puff IH DAILY [facility] Last Admin: 06/05/17 13:10 Dose: 1 puff Cephalexin HCl (Keflex -) 500 mg PO Q6HPO [facility] Last Admin: 06/05/17 11:56 Dose: 500 mg Furosemide (Lasix -) 20 mg PO DAILY [facility] Last Admin: 06/05/17 09:06 Dose: 20 mg Heparin Sodium (Porcine) (Heparin -) 1,000 unit IVPUSH PRN PRN PRN Reason: Heparin Heparin Sodium (Porcine) (Heparin -) 5,000 unit IVPUSH PRN PRN PRN Reason: Heparin Sodium Chloride (Normal Saline -) 1,000 mls @ 42 mls/hr IV ASDIR [facility] Last Admin: 06/04/17 19:06 Dose: 42 mls/hr HEPARIN SOD,PORK IN 0.45% NACL (Heparin-1/2ns 25,000 Units/500) 25,000 units in 500 mls @ 20 mls/hr IVPB TITR ELAINE; 1,000 UNITS/HR PRN Reason: Protocol Last Titration: 06/05/17 08:57 Dose: 1,150 units/hr, 23 mls/hr Insulin Aspart (Novolog Vial Sliding Scale -) 1 vial SQ ACHS [facility] PRN Reason: Protocol Last Admin: 06/05/17 13:11 Dose: Not Given Lactobacillus Acidophilus (Bacid -) 1 tab PO DAILY [facility] Last Admin: 06/05/17 09:06 Dose: 1 tab Metoprolol Succinate (Toprol Xl -) 50 mg PO DAILY [facility] Last Admin: 06/05/17 09:06 Dose: 50 mg Oxycodone HCl (Roxicodone -) 5 mg PO Q6H PRN PRN Reason: PAIN LEVEL 7 - 10 Last Admin: 06/05/17 11:54 Dose: 5 mg Ranitidine HCl (Zantac -) 300 mg PO DAILY [facility] Last Admin: 06/05/17 13:11 Dose: 300 mg Tiotropium [place] (Spiriva -) 1 puff IH DAILY [facility] Last Admin: 06/05/17 13:09 Dose: 1 puff Triamterene/HCTZ (Dyazide 25/37.5mg) 1 cap PO DAILY [facility] Last Admin: 06/05/17 13:10 Dose: 1 cap - Objective Vital Signs: Vital Signs Temperature 98.6 F 06/05/17 12:57 Pulse Rate 84 06/05/17 12:57 Respiratory Rate 18 06/05/17 12:57 Blood Pressure 152/69 06/05/17 08:00 O2 Sat by Pulse Oximetry (%) 97 06/05/17 09:00 Constitutional: Yes: No Distress Cardiovascular: Yes: Regular Rate and Rhythm, S1, S2 Respiratory: Yes: CTA Bilaterally Gastrointestinal: Yes: Soft Extremities: Yes: WNL Edema: No Labs: CBC, BMP 06/04/17 08:15 06/04/17 08:15 Assessment/Plan 66 year old f with a pmhx of asthma/copd, htn, and hld recently admitted to [facility] for colitis and since has been having worsening LE edema and cellulitis so pmd sent her in to ER. Cellulitis improving on Abx and lasix PO. Developed afib with RVR last night which patient denies any history h/o afib or arrhythmia despite being on metoprolol and diltiazem on med list. Today, while eating and talking to the bilingual social worker the patient syncopyzed. Resulting in head trauma. Rapid Response called and patient noted to be in Afib and s/p successful cardioversion. She is AOx3 now and only c/o chest tenderness to sternum to touch likely related to compressions. No palpitations. Echocardiogram: Normal LVEF with no significant valve disease. 1) Afib/Vfib patient currently in sinus rhythm. Was very difficult to control HR on IV diltiazem drip, metoprolol, and digoxin was given. Had a Vfib episode s/p Cardioversion and in sinus since. On amiodarone 400mg PO TID Echocardiogram with normal LVEF and no significant valve disease Head CT no acute m/s/b AOx3 with no neuro deficits Continue metoprolol and will uptitrate as HR/BP allows Will need an ischemic work up. Keep NPO in the morning and will plan for transfer to [facility] for cardiac cath. Trend serial cardiac enzymes -On heparin IV goal PTT 60-70. Continue telemetry monitoring Monitor lytes closely. And keep K greater than 4 and Mg greater than 2 Avoid hypoxia. Arrhythmia evaluation at [facility]
== END 2017-06-05 14:12 | disposition short-term general hospital (02) | DRG 602 ==
LOC: JER 20:34 → JERBED 23:26 → UNDOADMOB 06-03 00:21 → JERBED 06-03 00:21 → J8W 06-03 04:08 → J2W 06-03 19:41 → OBSVTOIN 06-04 11:52
PROVIDERS: ADMIT Internal Medicine; ATTEND Family Medicine
PROC: 5A2204Z Restoration of Cardiac Rhythm, Single (ICD-10-PCS; principal; 2017-06-05)
DX: L03.115 Cellulitis of right lower limb (principal); I49.01 Ventricular fibrillation; N17.9 Acute kidney failure, unspecified; Z68.41 Body mass index [BMI] 40.0-44.9, adult; J98.11 Atelectasis; L03.116 Cellulitis of left lower limb; I48.91 Unspecified atrial fibrillation; R73.03 Prediabetes; Z86.718 Personal history of other venous thrombosis and embolism; J44.9 Chronic obstructive pulmonary disease, unspecified; I10 Essential (primary) hypertension; E78.5 Hyperlipidemia, unspecified; K21.9 Gastro-esophageal reflux disease without esophagitis; F17.210 Nicotine dependence, cigarettes, uncomplicated; I87.8 Other specified disorders of veins; D64.9 Anemia, unspecified; E66.9 Obesity, unspecified
CPT/HCPCS: 36415; 36600; 70450-TC; 71045-TC-FY; 71111-TC-FY; 71250-TC; 71275-TC; 73523-TC-FY; 80048; 80053; 82272; 82436; 82550; 82728; 82803; 82962; 83036; 83540; 83550; 83605; 83735; 84100; 84133; 84300; 84439; 84443; 84466; 84484; 84540; 85025; 85027; 85730; 87040; 93005; 93010; 93306-TC; 93970-TC; 97116-GP; 97161-GP; 99282-25; G0378; J1644

== ENCOUNTER 2017-07-16 10:33 | Inpatient (IN) | payer OTHER ==
[2017-07-16 10:53] VITALS: BMI 40.7
[2017-07-16 12:16] LABS: BASO % 0.9 % (0-2.0); EOS % 3.7 % (0-4.5); LYMPH % 20.1 % (8-40); MCHC 31.7 g/dl (32.0-36.0); MEAN PLT VOLUME 7.5 fl (7.5-11.1); MONO % 7.2 % (3.8-10.2); NEUT % 68.1 % (42.8-82.8); PLATELET COUNT 276 K/MM3 (134-434); RBC 2.53 M/mm3 (3.60-5.2); WHITE BLOOD COUNT 7.8 K/mm3 (4.0-10.0)
[2017-07-16 12:18] LABS: HEMOGLOBIN 6.3 GM/dL (10.7-15.3)
[2017-07-16 12:31] LABS: INR 1.1 (0.82-1.09); PROTHROMBIN TIME (PATIENT) 12.4 SEC (9.98-11.88)
[2017-07-16 13:07] LABS: ALBUMIN 2.8 g/dl (3.4-5.0); ANION GAP 6 (8-16); BLOOD UREA NITROGEN 23 mg/dL (7-18); CALCIUM 8.2 mg/dL (8.5-10.1); CHLORIDE 109 mmol/L (98-107); CO2 30 mmol/L (21-32); GLUCOSE,RANDOM 95 mg/dL (74-106); POTASSIUM 4.3 mmol/L (3.5-5.1); SGOT/AST 28 U/L (15-37); SGPT/ALT 49 U/L (12-78); SODIUM 145 mmol/L (136-145); TOT PROT 5.6 g/dl (6.4-8.2)
[2017-07-16 13:08] LABS: ALK PHOS 118 U/L (45-117); BILIRUBIN,TOTAL < 0.1 mg/dL (0.2-1.0)
--- NOTE | 2017-07-16 14:01 | PDOC ---
History of Present Illness <Rupert Cortes - Last Filed: 07/16/17 14:02> - General History Source: Patient Exam Limitations: No Limitations - History of Present Illness Initial Comments: 07/16/17 15:21 The patient is a 66 year old female with a significant PMH of infectious colitis , hemorrhoids, asthma, [place] (s/p defibrillator), CVA, HTN, hyperlipidemia, and GERD who presents to the emergency department from Dr. Jauregui office for evaluation of a blood transfusion in the setting of rectal bleeding. The patient reports she has been rectally bleeding continuously over the past 2 weeks every time she uses the bathroom, whether she is urinating or having a BM. She describes the blood as bright red with clots which are both intermixed in her stool and bleeds without BM. She reports getting bloodwork from Dr. Jauregui office yesterday who noted a hemoglobin of 6.2, prompting him to send her to the ED. The patient denies chest pain, shortness of breath, headache and dizziness. Denies fever, chills, nausea, vomit, diarrhea and constipation. Denies dysuria, frequency, urgency and hematuria. Allergies: Moxifloxacin HCl, Procaine HCl. Past surgical history: Defibrillator placement. Rig Social history: Current everyday smoker. No reported alcohol or drug use. PCP: Dr. Vance <Luciano Elder - Last Filed: 07/16/17 15:21> - General Chief Complaint: Rectal Bleed Stated Complaint: BLOOD TRANFUSION (PCP SENT) Time Seen by Provider: 07/16/17 11:40 Past History - Past Medical History Asthma: Yes Cardiac Disorders: Yes (Defibrilator 05/2017) CVA: Yes COPD: No DVT: No GI Disorders: Yes (ACID REFLUX) HTN: Yes Hypercholesterolemia: Yes - Surgical History Cardiac Surgery: Yes (defibrilator) - Suicide/Smoking/Psychosocial Hx Smoking History: Current every day smoker Have you smoked in the past 12 months: Yes Number of Cigarettes Smoked Daily: 20 Information on smoking cessation initiated: Yes 'Breaking Loose' booklet given: 07/16/17 Hx Alcohol Use: No Drug/Substance Use Hx: No Substance Use Type: None <Rupert Cortes - Last Filed: 07/16/17 14:02> <Luciano Elder - Last Filed: 07/16/17 15:21> - Past Medical History Allergies/Adverse Reactions: Allergies Allergy/AdvReac Type Severity Reaction Status Date / Time moxifloxacin HCl Allergy Verified 07/16/17 10:53 [From Avelox] procaine HCl [From Novocain] Allergy Verified 07/16/17 10:53 Home Medications: Ambulatory Orders Budesonide/Formeterol Fumarate [SYMBICORT 160/4.5mcg -] 1 inh PO DAILY 03/28/14 Diltiazem HCl [Dilacor Xr] 180 mg PO DAILY 03/28/14 Furosemide [Lasix -] 20 mg PO DAILY 03/28/14 Liraglutide [Victoza -] 0 mg SQ ASDIR 03/28/14 Lisinopril [Prinivil] 20 mg PO DAILY 03/28/14 Meloxicam [Mobic -] 15 mg PO DAILY 03/28/14 Metformin HCl [Metformin HCl ER] 500 mg PO DAILY 03/28/14 Metoprolol Succinate [Toprol XL -] 100 mg PO DAILY 03/28/14 Potassium Chloride [Klor-Con 10] 10 meq PO DAILY 03/28/14 Ranitidine HCl [Zantac] 300 mg PO DAILY 03/28/14 Simvastatin [Zocor -] 40 mg PO HS 03/28/14 Tiotropium [place] [Spiriva] 1 inh PO DAILY 03/28/14 Triamterene/Hydrochlorothiazid [Triamterene-Hctz 37.5-25 mg Cp] 1 each PO DAILY 03/28/14 Acetaminophen [Tylenol .Regular Strength -] 650 mg PO Q4H PRN tablet 06/05/17 Albuterol 0.083% Nebulizer Clarita [Ventolin 0.083% Nebulizer Soln -] 1 amp NEB Q4H PRN amp 06/05/17 Amiodarone HCl [Cordarone -] 400 mg PO TID tablet 06/05/17 Cephalexin Monohydrate [Keflex -] 500 mg PO Q6HPO capsule 06/05/17 Insulin Sliding Scale [Novolog Vial Sliding Scale -] 1 vial SQ ACHS units 06/05 Lactobacillus Acidophilus [Bacid -] 1 tab PO DAILY tab 06/05/17 oxyCODONE HCL [Roxicodone -] 5 mg PO Q6H PRN tablet MDD 4 06/05/17 Review of Systems - Review of Systems Able to Perform ROS?: Yes Comments:: 07/16/17 14:05 GENERAL/CONSTITUTIONAL: No fever or chills. No weakness. HEAD, EYES, EARS, NOSE AND THROAT: No change in vision. No ear pain or discharge. No sore throat. CARDIOVASCULAR: No chest pain or shortness of breath. RESPIRATORY: No cough, wheezing, or hemoptysis. GASTROINTESTINAL: (+) Rectal bleeding. No nausea, vomiting, diarrhea or constipation. GENITOURINARY: No dysuria, frequency, or change in urination. MUSCULOSKELETAL: No joint or muscle swelling or pain. No neck or back pain. SKIN: No rash NEUROLOGIC: No headache, vertigo, loss of consciousness, or change in strength/ sensation. ENDOCRINE: No increased thirst. No abnormal weight change. HEMATOLOGIC/LYMPHATIC: No anemia, easy bleeding, or history of blood clots. ALLERGIC/IMMUNOLOGIC: No hives or skin allergy. <Luciano Elder - Last Filed: 07/16/17 15:21> *Physical Exam - Vital Signs Last Vital Signs Temp Pulse Resp BP Pulse Ox 97.9 F 89 18 100/50 96 07/16/17 10:49 07/16/17 10:49 07/16/17 10:49 07/16/17 10:49 07/16/17 11:40 <Rupert Cortes - Last Filed: 07/16/17 14:02> - Vital Signs Last Vital Signs Temp Pulse Resp BP Pulse Ox 97.9 F 89 18 100/50 96 07/16/17 10:49 07/16/17 10:49 07/16/17 10:49 07/16/17 10:49 07/16/17 11:40 - Physical Exam Comments: 07/16/17 14:05 GENERAL: (+) Pale appearing. Awake, alert, and fully oriented, in no acute distress HEAD: No signs of trauma EYES: (+) Pale conjunctiva. PERRLA, EOMI, sclera anicteric. ENT: Auricles normal inspection, hearing grossly normal, nares patent, oropharynx clear without exudates. Moist mucosa NECK: Normal ROM, supple, no lymphadenopathy, JVD, or masses LUNGS: (+) Minimal rhonchi bilaterally. No wheezes, and no crackles HEART: Regular rate and rhythm, normal S1 and S2, no murmurs, rubs or gallops ABDOMEN: Soft, nontender, normoactive bowel sounds. No guarding, no rebound. No masses RECTAL: (+) Non-thrombotic external hemorrhoids. EXTREMITIES: (+) +1 pitting edema to lower extremities Normal range of motion. No clubbing or cyanosis. No cords, erythema, or tenderness NEUROLOGICAL: AO. Cranial nerves II through XII grossly intact. Normal speech, normal gait SKIN: (+) Hyperpigmentation consistent with chronic venous stasis dermatitis. Warm, Dry, normal turgor, no rashes or lesions noted. <Luciano Elder - Last Filed: 07/16/17 15:21> ED Treatment Course - LABORATORY CBC & Chemistry Diagram: 07/16/17 12:05 07/16/17 12:05 - ADDITIONAL ORDERS Additional order review: Laboratory Results 07/16/17 07/16/17 07/16/17 13:49 12:30 12:05 PT with INR INR Sodium 145 Potassium 4.3 Chloride 109 H Carbon Dioxide 30 Anion Gap 6 L BUN 23 H Creatinine 1.0 Creat Clearance w eGFR 55.64 Random Glucose 95 Calcium 8.2 L Total Bilirubin < 0.1 L D AST 28 ALT 49 Alkaline Phosphatase 118 H Total Protein 5.6 L Albumin 2.8 L Stool Occult Blood Negative Crossmatch See Detail 07/16/17 12:05 PT with INR 12.40 H INR 1.10 Sodium Potassium Chloride Carbon Dioxide Anion Gap BUN Creatinine Creat Clearance w eGFR Random Glucose Calcium Total Bilirubin AST ALT Alkaline Phosphatase Total Protein Albumin Stool Occult Blood Crossmatch 07/16/17 12:05 RBC 2.53 L D MCV 79.0 L MCHC 31.7 L RDW 19.0 H MPV 7.5 D Neutrophils % 68.1 Lymphocytes % 20.1 Monocytes % 7.2 Eosinophils % 3.7 Basophils % 0.9 - RADIOLOGY Radiology Studies Ordered: Category Date Time Status CHEST X-RAY PORTABLE* [RAD] Stat Radiology 07/16/17 12:32 Taken <Rupert Cortes - Last Filed: 07/16/17 14:02> - LABORATORY CBC & Chemistry Diagram: 07/16/17 12:05 07/16/17 12:05 - ADDITIONAL ORDERS Additional order review: Laboratory Results 07/16/17 07/16/17 07/16/17 13:49 12:30 12:05 PT with INR INR Sodium 145 Potassium 4.3 Chloride 109 H Carbon Dioxide 30 Anion Gap 6 L BUN 23 H Creatinine 1.0 Creat Clearance w eGFR 55.64 Random Glucose 95 Calcium 8.2 L Total Bilirubin < 0.1 L D AST 28 ALT 49 Alkaline Phosphatase 118 H Total Protein 5.6 L Albumin 2.8 L Stool Occult Blood Negative Crossmatch See Detail 07/16/17 12:05 PT with INR 12.40 H INR 1.10 Sodium Potassium Chloride Carbon Dioxide Anion Gap BUN Creatinine Creat Clearance w eGFR Random Glucose Calcium Total Bilirubin AST ALT Alkaline Phosphatase Total Protein Albumin Stool Occult Blood Crossmatch 07/16/17 12:05 RBC 2.53 L D MCV 79.0 L MCHC 31.7 L RDW 19.0 H MPV 7.5 D Neutrophils % 68.1 Lymphocytes % 20.1 Monocytes % 7.2 Eosinophils % 3.7 Basophils % 0.9 <Luciano Elder - Last Filed: 07/16/17 15:21> Medical Decision Making - Medical Decision Making 07/16/17 14:00 Patient is a 66-year-old female with multiple comorbidities who presents to the ER with signs and symptoms of lower gastrointestinal bleed. Patient's hemodynamically stable with no evidence of active bleeding. H&H is noted to be 6.3 and 20. Stool guaiac is pending. Will transfuse 2 units of packed cells. Will admit to noncardiac telemetry further evaluation and treatment. Will consult GI. <Rupert Cortes - Last Filed: 07/16/17 14:02> *DC/Admit/Observation/Transfer - Discharge Dispostion Admit: Yes - Attestations Physician Attestion: 07/16/17 14:00 The documentation was prepared by the scribe under my direct supervision. I have reviewed the documentation which correctly represents the findings, medical decision-making and critical action taken by me. <Rupert Cortes - Last Filed: 07/16/17 14:02> - Attestations Scribe Attestion: 07/16/17 14:06 Documentation prepared by Luciano Elder, acting as medical records secretary for [facility] [place]. <Luciano Elder - Last Filed: 07/16/17 15:21> Diagnosis at time of Disposition: GI bleeding Qualifiers: GI bleed type/associated pathology: unspecified gastrointestinal hemorrhage type Qualified Code(s): K92.2 - Gastrointestinal hemorrhage, unspecified Anemia Qualifiers: Anemia type: iron deficiency Iron deficiency anemia type: chronic blood loss Qualified Code(s): D50.0 - Iron deficiency anemia secondary to blood loss ( chronic) - Discharge Dispostion Condition at time of disposition: Fair
--- NOTE | 2017-07-16 14:14 | EKG ---
Test Reason : Blood Pressure : / mmHG Vent. Rate : 078 BPM Atrial Rate : 078 BPM P-R Int : 144 ms QRS Dur : 084 ms QT Int : 412 ms P-R-T Axes : 053 023 026 degrees QTc Int : 469 ms NORMAL SINUS RHYTHM NORMAL ECG WHEN COMPARED WITH ECG OF 04-JUN-2017 13:13, NO SIGNIFICANT CHANGE WAS FOUND Confirmed by KIRIT CASTRO MD ([id number]) on 07/16/2017 2:14:38 PM Referred By: Confirmed By:KIRIT CASTRO MD
[2017-07-16] MEDS ORDERED: FUROSEMIDE 40 MG/4 ML INJECTABLE VIAL IVPUSH ONE (15:26)
[2017-07-16] MEDS ORDERED: FUROSEMIDE 40 MG/4 ML INJECTABLE VIAL ONE (17:31)
--- NOTE | 2017-07-16 17:47 | HP ---
Admitting History and Physical - Primary Care Physician PCP: Serge Vance - Past Medical History EXTRUDER TENDER: Yes: Other (MACULAR DEGENERATION) Cardiovascular: Yes: HTN Pulmonary: Yes: Asthma, COPD Infectious Disease: Yes: Other (UTI) Psych: Yes: Other (NACROLEPSY) Rheumatology: Yes: Other (ARTHRITIS) - Past Surgical History Past Surgical History: Yes: Colonoscopy, Tonsillectomy (ANKLE SURGERY) - Smoking History Smoking history: Current every day smoker Have you smoked in the past 12 months: Yes Aproximately how many cigarettes per day: 20 - Alcohol/Substance Use Hx Alcohol Use: No - Social History History of Recent Travel: No Home Medications - Allergies Allergies/Adverse Reactions: Allergies Allergy/AdvReac Type Severity Reaction Status Date / Time moxifloxacin HCl Allergy Verified 07/16/17 10:53 [From Avelox] procaine HCl [From Novocain] Allergy Verified 07/16/17 10:53 - Home Medications Home Medications: Ambulatory Orders Budesonide/Formeterol Fumarate [SYMBICORT 160/4.5mcg -] 1 inh PO DAILY 03/28/14 Diltiazem HCl [Dilacor Xr] 180 mg PO DAILY 03/28/14 Furosemide [Lasix -] 20 mg PO DAILY 03/28/14 Liraglutide [Victoza -] 0 mg SQ ASDIR 03/28/14 Lisinopril [Prinivil] 20 mg PO DAILY 03/28/14 Meloxicam [Mobic -] 15 mg PO DAILY 03/28/14 Metformin HCl [Metformin HCl ER] 500 mg PO DAILY 03/28/14 Metoprolol Succinate [Toprol XL -] 100 mg PO DAILY 03/28/14 Potassium Chloride [Klor-Con 10] 10 meq PO DAILY 03/28/14 Ranitidine HCl [Zantac] 300 mg PO DAILY 03/28/14 Simvastatin [Zocor -] 40 mg PO HS 03/28/14 Tiotropium [place] [Spiriva] 1 inh PO DAILY 03/28/14 Triamterene/Hydrochlorothiazid [Triamterene-Hctz 37.5-25 mg Cp] 1 each PO DAILY 03/28/14 Acetaminophen [Tylenol .Regular Strength -] 650 mg PO Q4H PRN tablet 06/05/17 Albuterol 0.083% Nebulizer Clarita [Ventolin 0.083% Nebulizer Soln -] 1 amp NEB Q4H PRN amp 06/05/17 Amiodarone HCl [Cordarone -] 400 mg PO TID tablet 06/05/17 Cephalexin Monohydrate [Keflex -] 500 mg PO Q6HPO capsule 06/05/17 Insulin Sliding Scale [Novolog Vial Sliding Scale -] 1 vial SQ ACHS units 06/05 Lactobacillus Acidophilus [Bacid -] 1 tab PO DAILY tab 06/05/17 oxyCODONE HCL [Roxicodone -] 5 mg PO Q6H PRN tablet MDD 4 06/05/17 Family Disease History - Family Disease History Family Disease History: Heart Disease: Mother (CHF), Brother (COLON), [place]: Brother, Other: Grandparent (CVA (HEMORRHAGIC)) Physical Examination Vital Signs: Vital Signs Temperature 98.3 F 07/16/17 15:15 Pulse Rate 76 07/16/17 15:15 Respiratory Rate 18 07/16/17 15:15 Blood Pressure 112/58 07/16/17 15:15 O2 Sat by Pulse Oximetry (%) 94 L 07/16/17 15:15 Labs: CBC, BMP 07/16/17 12:05 07/16/17 12:05
[2017-07-16] MEDS ORDERED: ALBUTEROL SO4 2.5/IPRATROPIUM 0.5 INH SOL 3 ML VIAL.NEB. NEB PRN (17:50)
[2017-07-16] MEDS ORDERED: ACETAMINOPHEN 325 MG TABLET (FP) PO PRN (17:50)
[2017-07-16] MEDS ORDERED: SODIUM CHLORIDE 1,000 ML IV SCH (18:00)
[2017-07-16] MEDS ORDERED: FUROSEMIDE 40 MG TABLET (FP) PO SCH (18:00)
[2017-07-16 19:05] VITALS: BP 110/59; PULSE 78; TEMP 98.4
[2017-07-16] MEDS ORDERED: PANTOPRAZOLE SODIUM 40 MG VIAL IVPUSH SCH (22:00)
[2017-07-16] MEDS ORDERED: INSULIN SLIDING SCALE (NOVOLOG) 1 VIAL SQ SCH (22:00)
[2017-07-16] MEDS ORDERED: BUDESONIDE/FORMETEROL FUMARATE 160/4.5 mcg INHALER IH SCH (22:00)
[2017-07-17] MEDS ORDERED: LISINOPRIL 5 MG TABLET (FP) PO SCH (10:00)
[2017-07-17] MEDS ORDERED: TIOTROPIUM BROMIDE 18 MCG CAPSULES IH SCH (10:00)
[2017-07-17] MEDS ORDERED: TRIAMTERENE 50 MG CAPSULE PO SCH (10:00)
== END 2017-07-16 18:59 | disposition left against medical advice (07) | DRG 379 ==
LOC: JER 10:33 → JERBED 14:02
PROVIDERS: ADMIT Family Medicine; ATTEND Family Medicine
DX: K92.2 Gastrointestinal hemorrhage, unspecified (principal); I10 Essential (primary) hypertension; E78.5 Hyperlipidemia, unspecified; K21.9 Gastro-esophageal reflux disease without esophagitis; I25.2 Old myocardial infarction; F17.200 Nicotine dependence, unspecified, uncomplicated; D50.0 Iron deficiency anemia secondary to blood loss (chronic); H35.30 Unspecified macular degeneration; J44.9 Chronic obstructive pulmonary disease, unspecified; Z86.73 Personal history of transient ischemic attack (TIA), and cerebral infarction without residual deficits; Z95.810 Presence of automatic (implantable) cardiac defibrillator
CPT/HCPCS: 36415; 36430; 71045-TC-FY; 80053; 82272; 85025; 85610; 86850; 86900; 86901; 86922; 93005; 93010; 99285-25; P9038; P9058

== ENCOUNTER 2017-07-17 10:56 | Inpatient (IN) | payer OTHER ==
[2017-07-17 11:14] VITALS: BMI 40.7
--- NOTE | 2017-07-17 11:29 | PDOC ---
History of Present Illness - General Chief Complaint: Weakness Stated Complaint: WEAKNESS Time Seen by Provider: 07/17/17 11:02 - History of Present Illness Initial Comments: 07/17/17 11:34 Patient is 66 year old female with a significant PMH of HTN, CVA, [place] (s/p defibrillator in 05/2017), Colitis, HLD who presents to our ED c/o 2 week h/o rectal bleed. Patient notes bright red blood with most bowel movements ( though not today) as well as intermittently with urination. Patient denies any associated shortness of breath, palpitation, lightheadedness. Patient was evaluated in our ED yesterday (07/16) and admitted for transfusion, however requested discharge prior to scheduled colonoscopy today so she could go take care of her dog. As per EMR, patient had a reported Hb 6.2 earlier this week as outpatient. Denies fever, chills, nausea, vomit, diarrhea and constipation. Denies dysuria, frequency, urgency and hematuria. Allergies: Moxifloxacin, Procaine Surgical: Defibrillator (June 2017) Social: (+) 1/2 ppd, (-) alcohol, (-) recreational drugs PMD: Dr. Vance Past History - Past Medical History Allergies/Adverse Reactions: Allergies Allergy/AdvReac Type Severity Reaction Status Date / Time moxifloxacin HCl Allergy Verified 07/16/17 10:53 [From Avelox] procaine HCl [From Novocain] Allergy Verified 07/16/17 10:53 Home Medications: Ambulatory Orders Budesonide/Formeterol Fumarate [SYMBICORT 160/4.5mcg -] 1 inh PO DAILY 03/28/14 Diltiazem HCl [Dilacor Xr] 180 mg PO DAILY 03/28/14 Furosemide [Lasix -] 20 mg PO DAILY 03/28/14 Liraglutide [Victoza -] 0 mg SQ ASDIR 03/28/14 Lisinopril [Prinivil] 20 mg PO DAILY 03/28/14 Meloxicam [Mobic -] 15 mg PO DAILY 03/28/14 Metformin HCl [Metformin HCl ER] 500 mg PO DAILY 03/28/14 Metoprolol Succinate [Toprol XL -] 100 mg PO DAILY 03/28/14 Potassium Chloride [Klor-Con 10] 10 meq PO DAILY 03/28/14 Ranitidine HCl [Zantac] 300 mg PO DAILY 03/28/14 Simvastatin [Zocor -] 40 mg PO HS 03/28/14 Tiotropium [place] [Spiriva] 1 inh PO DAILY 03/28/14 Triamterene/Hydrochlorothiazid [Triamterene-Hctz 37.5-25 mg Cp] 1 each PO DAILY 03/28/14 Acetaminophen [Tylenol .Regular Strength -] 650 mg PO Q4H PRN tablet 06/05/17 Albuterol 0.083% Nebulizer Clarita [Ventolin 0.083% Nebulizer Soln -] 1 amp NEB Q4H PRN amp 06/05/17 Amiodarone HCl [Cordarone -] 400 mg PO TID tablet 06/05/17 Cephalexin Monohydrate [Keflex -] 500 mg PO Q6HPO capsule 06/05/17 Insulin Sliding Scale [Novolog Vial Sliding Scale -] 1 vial SQ ACHS units 06/05 Lactobacillus Acidophilus [Bacid -] 1 tab PO DAILY tab 06/05/17 oxyCODONE HCL [Roxicodone -] 5 mg PO Q6H PRN tablet MDD 4 06/05/17 Asthma: Yes Cardiac Disorders: Yes (Defibrilator 05/2017) CVA: Yes COPD: No DVT: No GI Disorders: Yes (ACID REFLUX) HTN: Yes Hypercholesterolemia: Yes - Surgical History Cardiac Surgery: Yes (defibrilator) - Suicide/Smoking/Psychosocial Hx Smoking History: Current every day smoker Have you smoked in the past 12 months: Yes Number of Cigarettes Smoked Daily: 20 Information on smoking cessation initiated: No 'Breaking Loose' booklet given: 07/16/17 Hx Alcohol Use: No Drug/Substance Use Hx: No Substance Use Type: None Review of Systems - Review of Systems Constitutional: No: Chills, Fever HEENTM: No: Blurred Vision, Recent change in vision Respiratory: No: Cough, Shortness of Breath Cardiac (ROS): No: Chest Pain, Lightheadedness, Palpitations, Syncope ABD/GI: Yes: Rectal Bleeding. No: Constipated, Diarrhea, Nausea, Vomiting : Yes: Hematuria. No: Burning, Dysuria *Physical Exam - Vital Signs Last Vital Signs Temp Pulse Resp BP Pulse Ox 98.4 F 65 20 104/49 98 07/17/17 11:11 07/17/17 11:11 07/17/17 11:11 07/17/17 11:11 07/17/17 11:11 - Physical Exam General Appearance: Yes: Nourished, Appropriately Dressed HEENT: positive: EOMI, SIRIA Neck: positive: Trachea midline, Supple Respiratory/Chest: positive: Lungs Clear Cardiovascular: positive: S1, S2. negative: Edema, JVD, Murmur Vascular Pulses: Dorsalis-Pedis (R): 2+, Doralis-Pedis (L): 2+ Gastrointestinal/Abdominal: positive: Normal Bowel Sounds, Soft Musculoskeletal: negative: CVA Tenderness (R), CVA Tenderness (L) Extremity: positive: Normal Capillary Refill, Normal Inspection Integumentary: positive: Normal Color, Dry, Warm Neurologic: positive: Fully Oriented, Alert ED Treatment Course - LABORATORY CBC & Chemistry Diagram: 07/17/17 12:30 Medical Decision Making - Medical Decision Making 07/17/17 12:01 66 year old female - recent admission for anemia, presents c/o 2 week h/o rectal bleed. Outpatient Hb 6.2 earlier this week, transfused 1 unit yesterday , left AMA. 07/17/17 13:51 Hb 6.2 will transfuse 1 unit. Patient counseled on POC. UA pending. Case d/w patient's PMD - will admit for further w/u including colonoscopy and possible CT to r/o malignancy. Will continue to monitor while in ED 07/17/17 17:06 Patient receiving 1 unit PRBC. Topical vaseline for Stage 1 decubitus ulcer. 07/17/17 17:10 Patient transferred to inpatient medicine floor. *DC/Admit/Observation/Transfer Diagnosis at time of Disposition: Anemia - Discharge Dispostion Condition at time of disposition: Fair Admit: Yes - Referrals - Patient Instructions - Post Discharge Activity
--- NOTE | 2017-07-17 11:46 | PDOC ---
Attending Attestation - Resident Resident Name: Vannessa Lance - ED Attending Attestation I have performed the following: I have examined & evaluated the patient, The case was reviewed & discussed with the resident, I agree w/resident's findings & plan, Exceptions are as noted - HPI HPI: 07/17/17 11:45 66y F hx of htn, CVA, [place] s/p defib, hx of dvt was formerly on xeralto but was d/ javed 2 weeks ago - presents with 2 weeks of blood in stool. was admitted last night for transfusion and inpatient colonscopy, she had left last night AMA and rturns today for further management. pt notes she still feels alittle waek but denies any further rectal bleeding, palpitations, cp, sob. pt is pale appearing, otherwise in no distress abd soft nontender card: rrr, defibrillator in chest legs: no le edema will ck labs if anemic will tranfuse will discuss with dr. kunz - antcipate likely readmissino for gi workup 07/17/17 13:[address] kunz agree with admission for further workup GI: kozicki - Physicial Exam PE: 07/19/17 05:03 see aboglenis - Medical Decision Making 07/19/17 05:03 see above Heart Score/ECG Review - ECG Impressions Comment:: 07/17/17 13:01 Twelve-lead EKG was performed and reviewed by me. There is normal sinus rhythm with a normal rate. Rate of 67 The axis is normal. The intervals are normal. There is normal R wave progression There are no ST or T wave abnormalities.
[2017-07-17 13:13] LABS: BASO % 0.6 % (0-2.0); EOS % 3.8 % (0-4.5); HEMATOCRIT 21.2 % (32.4-45.2); LYMPH % 17.7 % (8-40); MCH 25.2 pg (25.7-33.7); MEAN CELL VOLUME 78.8 fl (80-96); MEAN PLT VOLUME 7.9 fl (7.5-11.1); MONO % 7.1 % (3.8-10.2); NEUT % 70.8 % (42.8-82.8); PLATELET COUNT 274 K/MM3 (134-434); RBC 2.69 M/mm3 (3.60-5.2); RDW 18.7 % (11.6-15.6); WHITE BLOOD COUNT 7.5 K/mm3 (4.0-10.0)
[2017-07-17 13:25] LABS: HEMOGLOBIN 6.8 GM/dL (10.7-15.3)
[2017-07-17 13:26] LABS: INR 1.1 (0.82-1.09); PROTHROMBIN TIME (PATIENT) 12.4 SEC (9.98-11.88)
[2017-07-17 13:29] LABS: ACTIVATED PTT 23.6 SECONDS (26.9-34.4)
[2017-07-17] MEDS ORDERED: PETROLATUM, WHITE 30 GM TUBE TP ONE (17:04)
[2017-07-17 18:36] VITALS: BP 119/73; PULSE 63; TEMP 99
[2017-07-18] MEDS ORDERED: ACETAMINOPHEN 325 MG TABLET (FP) PO PRN (05:27)
[2017-07-18] MEDS ORDERED: INSULIN SLIDING SCALE (NOVOLOG) 1 VIAL SQ SCH (07:00)
[2017-07-18] MEDS ORDERED: LISINOPRIL 20 MG TABLET (FP) PO SCH (10:00)
[2017-07-18] MEDS ORDERED: AMIODARONE HCL 200 MG TABLET (FP) PO SCH (10:00)
[2017-07-18] MEDS ORDERED: TRIAMTERENE 50 MG CAPSULE PO SCH (10:00)
[2017-07-18] MEDS ORDERED: FUROSEMIDE 20 MG TABLET (FP) PO SCH (10:00)
[2017-07-18] MEDS ORDERED: PANTOPRAZOLE SODIUM 40 MG VIAL IVPUSH SCH (10:00)
[2017-07-18] MEDS ORDERED: BACITRACIN 15 GM TUBE TOPICAL OINTMENT TP SCH (10:00)
--- NOTE | 2017-07-18 10:00 | EKG ---
Test Reason : Blood Pressure : / mmHG Vent. Rate : 067 BPM Atrial Rate : 067 BPM P-R Int : 138 ms QRS Dur : 088 ms QT Int : 446 ms P-R-T Axes : 057 025 039 degrees QTc Int : 471 ms NORMAL SINUS RHYTHM POSSIBLE LEFT ATRIAL ENLARGEMENT WHEN COMPARED WITH ECG OF 16-JUL-2017 12:45, NO SIGNIFICANT CHANGE WAS FOUND Confirmed by KAYLAH AUGUSTE MD ([id number]) on 07/18/2017 10:00:31 AM Referred By: Confirmed By:KAYLAH AUGUSTE MD
== END 2017-07-17 20:22 | disposition left against medical advice (07) | DRG 812 ==
LOC: JER 10:56 → JERBED 13:29 → J5S 17:55
PROVIDERS: ADMIT Family Medicine; ATTEND Family Medicine
DX: D64.9 Anemia, unspecified (principal); I10 Essential (primary) hypertension; I25.2 Old myocardial infarction; E78.5 Hyperlipidemia, unspecified; J45.909 Unspecified asthma, uncomplicated; F17.200 Nicotine dependence, unspecified, uncomplicated; K21.9 Gastro-esophageal reflux disease without esophagitis; Z95.810 Presence of automatic (implantable) cardiac defibrillator; Z86.73 Personal history of transient ischemic attack (TIA), and cerebral infarction without residual deficits; Z86.718 Personal history of other venous thrombosis and embolism
CPT/HCPCS: 36415; 36430; 82272; 85025; 85610; 85730; 86850; 86900; 86901; 86922; 93005; 93010; 99283-25; P9038; P9058

== ENCOUNTER 2020-07-25 06:17 | Emergency (ER) | payer OTHER ==
[2020-07-25 06:55] VITALS: BP 147/80; PULSE 71; TEMP 98.5; BMI 33.3
[2020-07-25] MEDS ORDERED: LACTATED RINGERS SOLUTION 1000 ML INFUS.BAG IV ONE (07:46)
[2020-07-25] MEDS ORDERED: ACETAMINOPHEN 1000 MG/100 ML VIAL (NON FORMULARY) IVPB ONE ×2 (07:56→09:02)
[2020-07-25] MEDS ORDERED: ACETAMINOPHEN INJECTION 100 ML IVPB ONE (08:02)
[2020-07-25 08:36] LABS: BASO % 0.7 % (0-2.0); EOS % 3.8 % (0-4.5); HEMATOCRIT 46.6 % (32.4-45.2); HEMOGLOBIN 16.1 GM/dL (10.7-15.3); MCHC 34.5 g/dl (32.0-36.0); MEAN CELL VOLUME 95.5 fl (80-96); MONO % 8.4 % (3.8-10.2); NEUT % 64.1 % (42.8-82.8); PLATELET COUNT 149 K/MM3 (134-434); RBC 4.88 M/mm3 (3.60-5.2); RDW 13.1 % (11.6-15.6); WHITE BLOOD COUNT 8.2 K/mm3 (4.0-10.0)
[2020-07-25 08:43] LABS: EPI CELLS >36 /uL (0-25.1); HYALINE CASTS 1 /uL (0-3.1); URINE APPEARANCE CLEAR; URINE BACTERIA 1251 /uL (0-1359); URINE BILIRUBIN NEGATIVE (NEGATIVE); URINE COLOR YELLOW; URINE GLUCOSE (UA) NEGATIVE (NEGATIVE); URINE KETONE NEGATIVE (NEGATIVE); URINE LEUK ESTERASE TRACE (NEGATIVE); URINE NITRITE NEGATIVE (NEGATIVE); URINE PROTEIN NEGATIVE (NEGATIVE); URINE RBC 74 /uL (0-23.9); URINE UROBILINOGEN 0.2 mg/dL (0.2-1.0); URINE WBC 15 /uL (0-25.8)
[2020-07-25 08:46] LABS: INR 1.02 (0.83-1.09); PROTHROMBIN TIME (PATIENT) 12.5 SEC (9.7-13.0)
[2020-07-25 08:49] LABS: ACTIVATED PTT 25.7 SECONDS (25.2-36.5)
[2020-07-25 09:01] LABS: CHLORIDE 106 mmol/L (98-107); POTASSIUM 3.6 mmol/L (3.5-5.1); SODIUM 143 mmol/L (136-145)
[2020-07-25 09:03] LABS: CALCIUM 9.3 mg/dL (8.5-10.1)
[2020-07-25 09:04] LABS: ALBUMIN 3.2 g/dl (3.4-5.0); ANION GAP 3 MMOL/L (8-16); BLOOD UREA NITROGEN 39.5 mg/dL (7-18); CO2 35 mmol/L (21-32); GLUCOSE,RANDOM 89 mg/dL (74-106)
[2020-07-25 09:08] LABS: CREATININE 1.2 mg/dL (0.55-1.3); SGOT/AST 10 U/L (15-37); SGPT/ALT 19 U/L (13-61)
[2020-07-25 09:09] LABS: BILIRUBIN,TOTAL 0.4 mg/dL (0.2-1); TOT PROT 6.2 g/dl (6.4-8.2)
[2020-07-25 09:10] LABS: ALK PHOS 85 U/L (45-117)
== END 2020-07-25 15:46 | disposition home or self-care (01) ==
LOC: JER 06:17
PROC: 3E0333Z Introduction of Anti-inflammatory into Peripheral Vein, Percutaneous Approach (ICD-10-PCS; principal; 2020-07-25)
DX: N28.1 Cyst of kidney, acquired (principal); K42.9 Umbilical hernia without obstruction or gangrene
CPT/HCPCS: 36415; 71045-TC-FY; 74177-TC; 76856-TC; 80053; 81003; 82550; 83605; 84439; 84443; 84484; 85025; 85610; 85730; 86850; 86900; 86901; 87086; 93005; 93010; 99285-25; C9803; J0131; Q9967; U0003; U0005